=== PATIENT | female | born 1935 | race Caucasian/White ===

== ENCOUNTER 2018-04-23 10:48 | Emergency (ER) | payer OTHER ==
[~2018-04-23] VITALS: Ht 149.9 cm; Wt 43.1 kg
--- NOTE | 2018-04-23 10:48 | NUR ---
PT BIBA BLS TO ER BED 02
[2018-04-23 10:55] VITALS: BP 131/91
--- NOTE | 2018-04-23 10:58 | NUR ---
82/ F BIB EMS, C/O OF HAVING NAUSEA, DENIES FOOD, POOR APPETITE, STATES DOESNT FEEL WELL. PATIENT CANNOT RECALL HOW LONG SHE HAS HAD SYMTPOMS. LLQ PAIN, DULL INTERMITTENT 5/10, ABDOMEN IS NON TENDER. PATIENT DENIES VOMITING, DIARRHEA, CONSTIPATION, DYSURIA, OR FEVERS. PATIENT WEARS DIAPERS. REPORTS FEELING WEAK. DENIES SOB, CP, BUT HAS A COUGH, PATIENT UNAWARE OF HOW LONG. AOX4, BEDBOUND, SAFETY PRECAUTIONS IN PLACE.
[2018-04-23] MEDS ORDERED: ONDANSETRON 4 MG/2 ML VIAL IVP ONE (11:05)
[2018-04-23] MEDS ORDERED: ACT5 PO (11:11)
[2018-04-23] MEDS ORDERED: METF500T PO (11:11)
[2018-04-23] MEDS ORDERED: ESCI10TA PO (11:11)
[2018-04-23] MEDS ORDERED: SYN.05 PO (11:11)
[2018-04-23] MEDS ORDERED: RANI150C PO (11:11)
[2018-04-23] MEDS ORDERED: RIVA15TA1 PO (11:11)
[2018-04-23] MEDS ORDERED: AMIO200T5 PO (11:11)
[2018-04-23] MEDS ORDERED: HYDR-5092 PO (11:11)
[2018-04-23] MEDS ORDERED: PRED5TAB7 PO (11:11)
[2018-04-23] MEDS ORDERED: METO25TA PO (11:11)
[2018-04-23 11:32] LABS: BASOPHILS % (AUTO) 0.6 % (0.0-2.0); EOSINOPHILS % (AUTO) 0.2 % (0.0-4.0); HEMOGLOBIN 13.3 g/dL (12.0-16.0); LYMPHOCYTES # (AUTO) 0.9 K/uL (2.5-16.5); LYMPHOCYTES % (AUTO) 11.6 % (20.5-51.1); MEAN CORPUSCULAR HEMOGLOBIN 30 pg (27-31); MEAN CORPUSCULAR HGB CONC 32 g/dL (33-37); MEAN CORPUSCULAR VOLUME 93.8 fL (80-94); MONOCYTES # (AUTO) 0.3 K/uL (0.8-1.0); MONOCYTES % (AUTO) 4.6 % (1.7-9.3); NEUTROPHILS # (AUTO) 6.3 K/uL (1.8-7.7); PLATELET COUNT (AUTO) 279 K/uL (140-450); RED BLOOD CELL COUNT(AUTO) 4.48 MIL/uL (4.20-5.40); RED CELL DISTRIBUTION WIDTH 18.6 % (11.6-13.7); WHITE BLOOD COUNT (AUTO) 7.6 K/uL (4.8-10.8)
[2018-04-23 11:48] LABS: ANION GAP 13.5 (8-16); CARBON DIOXIDE 26.2 mmol/L (21-32); CHLORIDE 101 mmol/L (98-107); CREATININE 0.9 mg/dL (0.6-1.3); GLUCOSE 83 mg/dL (74-106); POTASSIUM 3.7 mmol/L (3.5-5.1); SODIUM SERUM 137 mmol/L (136-145); UREA NITROGEN, BLOOD 15 mg/dL (7-18)
[2018-04-23 11:56] LABS: ALBUMIN 2.3 g/dL (3.4-5.0); ASPARTATE AMINOTRANSFERASE 27 U/L (15-37); TOTAL BILIRUBIN 0.8 mg/dL (0.0-1.0)
[2018-04-23 12:27] LABS: PROTHROMBIN TIME 12.4 secs (10.8-13.4)
[2018-04-23 12:48] LABS: APPEARANCE,URINE HAZY (CLEAR); BILIRUBIN,URINE 2+ (NEGATIVE); BLOOD, URINE NEGATIVE (NEGATIVE); COLOR,URINE ORANGE (YELLOW); LEUKOCYTE ESTERASE ,URINE NEGATIVE (NEGATIVE); NITRITE, URINE NEGATIVE (NEGATIVE); UGLUCOSE NEGATIVE (NEGATIVE)
--- NOTE | 2018-04-23 12:58 | NUR ---
PATIENT TAKEN TO CT, VIA GURNEY ACCOMPANIED BY RAD. VILLAVICENCIO.
--- NOTE | 2018-04-23 13:10 | NUR ---
PATIENT IS ABCK FROM CT, VIA GURNEY.
--- NOTE | 2018-04-23 13:25 | NUR ---
, NOTIFIED OF [facility] IM VS IVP.
--- NOTE | 2018-04-23 13:44 | NUR ---
RESTING WITH OU CLOSED, NO S/S RESP DISTRESS OR ACCESSORY MUSCLE USE NOTED AT THIS TIME. AWAITS DISPO
[2018-04-23] MEDS ORDERED: NACL 0.9% 500 ML IV ONE (14:10)
--- NOTE | 2018-04-23 14:20 | NUR ---
INFLUENZA SWAB PERFORMED, LAB CALLED.
[2018-04-23] MEDS ORDERED: METOPROLOL 5 MG/5 ML VIAL IVP ONE (15:55)
--- NOTE | 2018-04-23 16:50 | NUR ---
CALLED [facility] REQUESTING TRANSPORT BACK TO [facility]. ETA OF 1900 GIVEN.
--- NOTE | 2018-04-23 19:13 | NUR ---
CALLED [facility] FOR UPDATED ETA WILL BE AN ADDITIONAL 60-90 MIN
--- NOTE | 2018-04-23 19:21 | NUR ---
RESTING WITH EYES CLOSED, NO S/S RESP DISTRESS OR ACCESSORY MUSCLE USE NOTED AT THIS TIME. AWAITS DISPO
--- NOTE | 2018-04-23 20:19 | NUR ---
CALLED [facility] FOR UPDATED ETA WILL BE AN ADDITIONAL 20-30 MIN
--- NOTE | 2018-04-23 21:00 | NUR ---
CALLED REPORT TO [facility] N/A
--- NOTE | 2018-04-23 21:15 | NUR ---
[facility], AT BEDSIDE FOR PATIET PICKUP.
--- NOTE | 2018-04-23 21:25 | NUR ---
PT TAKEN BY [facility] OUT OF THE ER
[2018-04-23 21:32] VITALS: BP 110/72
--- NOTE | 2018-04-23 21:33 | NUR ---
Patient discharged with v/s stable. Written and verbal after care instructions given and explained. Patient alert, oriented and verbalized understanding of instructions. Ambulance Transport with by caregiver. All questions addressed prior to discharge. ID band removed. Patient advised to follow up with PMD. Rx of MIRALAX given. Patient educated on indication of medication including possible reaction and side effects. Opportunity to ask questions provided and answered.
--- NOTE | 2018-04-23 21:40 | NUR ---
CALLED REPORT TO [facility] SPOKE TO DERRICK, REPORT GIVEN
== END 2018-04-23 21:33 | disposition home or self-care (01) ==
LOC: MED 10:48
DX: K59.00 Constipation, unspecified (principal); E86.0 Dehydration; I48.91 Unspecified atrial fibrillation; E11.9 Type 2 diabetes mellitus without complications; I10 Essential (primary) hypertension; E03.9 Hypothyroidism, unspecified; Z79.84 Long term (current) use of oral hypoglycemic drugs; Z79.01 Long term (current) use of anticoagulants; Z79.891 Long term (current) use of opiate analgesic; Z79.899 Other long term (current) drug therapy
CPT/HCPCS: 36415; 51701; 74177; 80053; 81003; 85025; 85610; 96361; 96374; 96375; 99284; J2405; J3490; J7030; Q9967

== ENCOUNTER 2018-06-04 18:30 | Inpatient (IN) | payer OTHER ==
[~2018-06-04] VITALS: Ht 154.9 cm; Wt 49.9 kg
[~2018-06-04 18:30] MED LIST: ACT5 PO; AMIO200T5 PO; ESCI10TA PO; HYDR-5092 PO; METF500T PO; METO25TA PO; PRED5TAB7 PO; RANI150C PO; RIVA15TA1 PO; SYN.05 PO
[2018-06-04 18:32] VITALS: BP 146/49
--- NOTE | 2018-06-04 18:41 | NUR ---
PT BIB BLS TO ER BED 10
--- NOTE | 2018-06-04 18:57 | NUR ---
BIBA FROM TYPING TEACHER CARE. STATES THAT THE PATIENT WAS NOT ABLE TO MAINTAIN O2 SAT AND HAD LABORED BREATHING. PATIENT A&Ox3 STATES NO PAIN.
--- NOTE | 2018-06-04 19:08 | NUR ---
ASSUMED CARE FROM MARIA VICTORIA SNOW
[2018-06-04] MEDS ORDERED: NACL 0.9% 1,000 ML IV SCH (20:04)
--- NOTE | 2018-06-04 20:11 | NUR ---
EKG PERFORMED AT BEDSIDE. PT COVERED IN GOWN AND BLANKET DURING PROCEDURE
[2018-06-04] MEDS ORDERED: PIPERACILLIN/TAZOBACTAM 3.375 GM in DEXTROSE 5% 50 ML IV ONE (20:50)
--- NOTE | 2018-06-04 20:50 | NUR ---
SUPERVISOR DRY CELL ASSEMBLY ATTEMPTING IV AT THIS TIME.
[2018-06-04] MEDS ORDERED: PIPERACILLIN/TAZOBACTAM 3.375 GM VIAL IV ONE (21:09)
[2018-06-04 21:10] LABS: BASOPHILS # (AUTO) 0.1 K/uL (0.00-0.22); BASOPHILS % (AUTO) 0.5 % (0.0-2.0); HEMATOCRIT 28.3 % (36-48); HEMOGLOBIN 8.8 g/dL (12.0-16.0); LYMPHOCYTES # (AUTO) 0.6 K/uL (2.5-16.5); LYMPHOCYTES % (AUTO) 3.1 % (20.5-51.1); MEAN CORPUSCULAR HEMOGLOBIN 30 pg (27-31); MEAN CORPUSCULAR HGB CONC 31 g/dL (33-37); MEAN CORPUSCULAR VOLUME 95.3 fL (80-94); MONOCYTES # (AUTO) 0.5 K/uL (0.8-1.0); MONOCYTES % (AUTO) 2.6 % (1.7-9.3); NEUTROPHILS # (AUTO) 18.7 K/uL (1.8-7.7); NEUTROPHILS % (AUTO) 93.8 % (42.2-75.2); PLATELET COUNT (AUTO) 459 K/uL (140-450); RED BLOOD CELL COUNT(AUTO) 2.97 MIL/uL (4.20-5.40)
[2018-06-04 21:13] LABS: ANION GAP 13.8 (8-16); CHLORIDE 105 mmol/L (98-107); CREATININE 1.4 mg/dL (0.6-1.3); GLUCOSE 137 mg/dL (74-106); POTASSIUM 4.8 mmol/L (3.5-5.1); SODIUM SERUM 138 mmol/L (136-145); UREA NITROGEN, BLOOD 40 mg/dL (7-18)
[2018-06-04 21:26] LABS: ALBUMIN 1.6 g/dL (3.4-5.0); ASPARTATE AMINOTRANSFERASE 28 U/L (15-37); TOTAL BILIRUBIN 0.4 mg/dL (0.0-1.0)
[2018-06-04] MEDS ORDERED: NACL 0.9% 500 ML IV ONE (21:30)
[2018-06-04 21:31] LABS: PROTHROMBIN TIME 15.5 secs (10.8-13.4)
--- NOTE | 2018-06-04 21:45 | NUR ---
RUPAL MCBRIDE AT [facility] FOR IV PLACEMENT
--- NOTE | 2018-06-04 21:56 | NUR ---
# 14 FR Urinary catheter inserted utilizing sterile technique. Immediate return of 50 ml YELLOW urine noted. Urine sample collected and sent to lab. Pt tolerated procedure WELL.
[2018-06-04 22:05] LABS: APPEARANCE,URINE CLEAR (CLEAR); BILIRUBIN,URINE NEGATIVE (NEGATIVE); BLOOD, URINE NEGATIVE (NEGATIVE); COLOR,URINE YELLOW (YELLOW); LEUKOCYTE ESTERASE ,URINE TRACE (NEGATIVE); NITRITE, URINE NEGATIVE (NEGATIVE); UGLUCOSE NEGATIVE (NEGATIVE)
[2018-06-04 22:09] LABS: RBC,URINE 0-5 (RARE) /HPF (0-5)
[2018-06-04 22:10] LABS: URINE AMORPHOUS URATE 1+ /HPF (None Seen); WBC,URINE 0-5 (RARE) /HPF (0-5)
[2018-06-04 22:11] LABS: HYALINE CASTS, URINE 0-10 /LPF (None Seen)
[2018-06-04] MEDS ORDERED: DIGO0.122 PO (22:11)
[2018-06-04] MEDS ORDERED: POTA10TA34 PO (22:11)
[2018-06-04] MEDS ORDERED: DRON2.5C PO (22:11)
[2018-06-04] MEDS ORDERED: APID SUBQ (22:11)
[2018-06-04] MEDS ORDERED: LACT10SO1 PO (22:11)
[2018-06-04] MEDS ORDERED: SYN.05 PO (22:11)
[2018-06-04] MEDS ORDERED: ASPIRIN 81 MG TAB.CHEW PO ONE (22:20)
[2018-06-04] MEDS: NACL 0.9% 1,000 ML IV SCH (22:39)
[2018-06-04] MEDS ORDERED: ACETAMINOPHEN 325 MG TAB PO PRN (22:40)
[2018-06-04] MEDS ORDERED: DOCUSATE SODIUM 100 MG GELCAP PO PRN (22:40)
[2018-06-04] MEDS ORDERED: HYDROcodone/APAP 5/325 MG 1 TAB TAB PO PRN (22:40)
[2018-06-04] MEDS ORDERED: ONDANSETRON 4 MG/2 ML VIAL IM/IVP PRN (22:40)
--- NOTE | 2018-06-04 23:00 | NUR ---
ADMITTED A 82 Y/O FEMALE FROM VIA [facility] WITH CHIEF COMPLAINT OF SHORTNESS OF BREATHING. RESPIRATION EVEN AND UNLABORED. PATIENT IN CARDIAC MONITORING. TRANSFERRED PATIENT FROM [facility] TO BED WITH 2 PERSON ASSIST.MRSA NASAL DONE. SKIN INTACT. IV INFILTRATED WHEN RECEIVED FROM . PERSONAL BELONGINGS AT PATIENT BEDSIDE. FALL PRECAUTION APPLIED. EXPLAINED PLAN OF CARE. CALL LIGHT WITHIN REACH. WILL CONTINUE TO MONITOR.
[2018-06-04] MEDS ORDERED: ALBUTEROL SULFATE/IPRATROPIU 3 ML SOL IH PRN (23:15)
--- NOTE | 2018-06-04 23:45 | NUR ---
PATIENT TRANSPORTED TO IMAGING DEPARTMENT FOR CT OF HEAD. PATIENT IN STABLE CONDITION.
[2018-06-04 23:52] LABS: CHOL/HDL RATIO 3.1 (1-4.5); MAGNESIUM 2.1 mg/dL (1.8-2.4); PHOSPHORUS 4.4 mg/dL (2.5-4.9)
[2018-06-04 23:53] LABS: THYROID STIMULATING HORMONE 3.52 uIU/mL (0.34-3.74)
--- NOTE | 2018-06-05 | NUR ---
PLACE PATIENT IN COMFORTABLE POSITION AND PLACE PILLOW FOR TURNING AND REPOSITIONING.
--- NOTE | 2018-06-05 01:00 | NUR ---
RESIDENT DR. RUFF MADE AWARE THAT UNABLE TO DRAW BLOOD PER REPEATER OPERATOR.
--- NOTE | 2018-06-05 02:00 | NUR ---
REPOSITION PATIENT AND ELEVATED HOB . [address] FALL PRECAUTION APPLIED. KEEP PATIENT WARM AND COMFORTABLE. WILL CONTINUE TO MONITOR.
[2018-06-05] MEDS ORDERED: HEPARIN PER PHARMACY MC PRN (02:20)
[2018-06-05] MEDS ORDERED: hePARIN / DEXT 5% PREMIX 250 ML IV SCH (02:20)
--- NOTE | 2018-06-05 03:45 | NUR ---
UNABLE TO GET IV ACCESS 2X. DR. RUFF AWARE.
--- NOTE | 2018-06-05 03:50 | NUR ---
DR. RUFF ORDERED LACTIC ACID BUT UNABLE TO DRAW BLOOD. DR. RUFF MADE AWARE.
[2018-06-05 04:00] VITALS: BP 114/83
--- NOTE | 2018-06-05 04:30 | NUR ---
UNABLE TO GET IV ACCESS. DR. RUFF AWARE.
[2018-06-05] MEDS ORDERED: INSULIN LISPRO SLIDING SCALE 100 UNITS/ML VIAL SUBQ PRN (04:40)
[2018-06-05] MEDS: PIPER/TAZO 3.375GM/D5W PREMIX 50 ML IV SCH ×3 (05:00→21:29)
--- NOTE | 2018-06-05 05:00 | NUR ---
AM CARE DONE. REPOSITIONED PATIENT USING PILLOW AND APPLIED HEEL PROTECTOR BOTH SIDE. HOB ELEVATED WITH [address] NO S/S OF DISTRESS NOTED. FALL PRECAUTION APPLIED.
--- NOTE | 2018-06-05 05:22 | NUR ---
RT attempted ABG three times and could not obtain sample additional RT tried and was unsuccessful. RN and Dr. Zelaya notified that sample was difficult to obtain. Patient is stable, alert on 3L nasal canula spo2 [address] 87[address] Not[address] and order was canceled. Rt will monitor patient.
[2018-06-05] MEDS ORDERED: NITROGLYCERIN 0.4 MG TAB SL PRN (05:30)
[2018-06-05] MEDS: LEVOTHYROXINE 0.05 MG TAB PO SCH (05:57)
[2018-06-05] MEDS: BLOOD GLUCOSE MONITORING 1 DEV DEV FS SCH ×4 (05:57→21:40)
[2018-06-05 08:00] VITALS: BP 110/68
--- NOTE | 2018-06-05 08:17 | NUR ---
PATIENT HAS BEEN SCREENED AND CATEGORIZED HIGH NUTRITION RISK. PATIENT WILL BE SEEN WITHIN 1-2 DAYS OF ADMISSION. 06/05/18-06/06/[address]
[2018-06-05 08:26] LABS: HEMATOCRIT 28.5 % (36-48); HEMOGLOBIN 8.9 g/dL (12.0-16.0); MEAN CORPUSCULAR HEMOGLOBIN 30 pg (27-31); MEAN CORPUSCULAR HGB CONC 31 g/dL (33-37); MEAN CORPUSCULAR VOLUME 94.7 fL (80-94); PLATELET COUNT (AUTO) 506 K/uL (140-450); RED BLOOD CELL COUNT(AUTO) 3.01 MIL/uL (4.20-5.40); WHITE BLOOD COUNT (AUTO) 19.3 K/uL (4.8-10.8)
[2018-06-05] MEDS: LISINOPRIL 10 MG TAB PO SCH (09:00)
[2018-06-05] MEDS ORDERED: METOPROLOL 25 MG TAB PO SCH (09:00)
[2018-06-05] MEDS: METOPROLOL 25 MG TAB PO SCH ×2 (09:00→21:33)
[2018-06-05] MEDS: metFORMIN 500 MG TAB PO SCH (09:00)
[2018-06-05] MEDS ORDERED: RIVAROXABAN 15 MG TAB PO SCH (09:00)
[2018-06-05 09:36] LABS: LYMPHOCYTES % (MANUAL) 8 % (20-46); MONOCYTES % (MANUAL) 2 % (5-12)
[2018-06-05] MEDS: ESCITALOPRAM 20 MG TAB PO SCH (09:48)
[2018-06-05] MEDS: predniSONE 5 MG TAB PO SCH (09:50)
[2018-06-05] MEDS: AMIODARONE 200 MG TAB PO SCH ×2 (09:50→21:32)
[2018-06-05] MEDS: DIGOXIN 0.125 MG TAB PO SCH (09:50)
[2018-06-05] MEDS: ASPIRIN 81 MG TAB.CHEW PO SCH (09:50)
--- NOTE | 2018-06-05 09:50 | NUR ---
RADIOLOGIST AT BEDSIDE PERFORMING US ABD. SCHEDULED MEDICATIONS DUE GIVEN. METFORMIN NOT GIVEN DUE TO DECREASED GLUCOSE THIS MORNING AND PATIENT HAS CURRENTLY POOR APPETITE AND NO IV LINE. AWAITING FOR PICC NURSE TO ARRIVE AROUND 10-11AM THIS MORNING PER PICC NURSE REPORTED VIA PHONE CALL.
--- NOTE | 2018-06-05 11:00 | NUR ---
PICC LINE NURSE ON UNIT TO INSERT PICC LINE. WILL CONTINUE TO MONITOR.
[2018-06-05 11:14] LABS: ANION GAP 16.4 (8-16); CARBON DIOXIDE 21.6 mmol/L (21-32); CHLORIDE 104 mmol/L (98-107); GLUCOSE 110 mg/dL (74-106); SODIUM SERUM 137 mmol/L (136-145)
[2018-06-05 11:15] LABS: CREATININE 1.4 mg/dL (0.6-1.3); UREA NITROGEN, BLOOD 42 mg/dL (7-18)
[2018-06-05 11:16] LABS: MAGNESIUM 2.1 mg/dL (1.8-2.4); PHOSPHORUS 4.7 mg/dL (2.5-4.9)
--- NOTE | 2018-06-05 11:50 | NUR ---
PICC LINE NURSE COMPLETED INSERTION OF MIDLINE ON RIGHT UE. PATIENT TOLERATED WELL. WILL CONTINUE TO MONITOR.
[2018-06-05 12:00] VITALS: BP 123/57
--- NOTE | 2018-06-05 12:29 | NUR ---
PATIENT LYING DOWN IN BED. NO DISTRESS NOTED. CONDITION UNCHANGED. SCHEDULED MEDICATIONS DUE GIVEN. WILL CONTINUE TO MONITOR.
--- NOTE | 2018-06-05 13:16 | NUR ---
06/05/18 RD INITIAL ASSESSMENT COMPLETED PLEASE REFER TO NUTRITION ASSESSMENT UNDER CARE ACTIVITY FOR ESTIMATED NUTRITIONAL NEEDS. 1. RECOMMEND CARDIAC, 60 GM CCHO PUREE DIET 2. RECOMMEND GLUCERNA TID 3. RD TO FOLLOW-UP 2-3 DAYS, HIGH RISK RUFUS GALLAGHER, RD
--- NOTE | 2018-06-05 13:50 | NUR ---
PATIENT LYING DOWN IN BED SLEEPING, AROUSABLE BY VOICE. HEPARIN DRIP STARTED AT THIS TIME PER PROTOCOL. WILL CONTINUE TO MONITOR.
[2018-06-05] MEDS: hePARIN / DEXT 5% PREMIX 250 ML IV SCH (13:52)
--- NOTE | 2018-06-05 14:53 | NUR ---
S.T. Bedside swallow eval completed See report for full details. Pt presents with mod-severe oropharyngeal dysphagia c/b prolonged oral prep and bolus holding, delayed pharyngeal swallow initiation and coughing after swallows of thin liquids, nectar thick liquids and honey thick liquid x1, likely due to fatigue. Pt appeared to fatigue and become increasingly SOB. It appears unlikely that pt will maintain endurance for p.o. intake to meet caloric needs. Recommend: 1) Downgrade diet texture to pureed with honey thick liquids via spoon. 2) P.O. meds as tolerated. 3) Consider dietary supplement or supplemental non-oral means of nutrition/hydration to support caloric needs. D/w pt and MARIA VICTORIA Howard results/recommendations. No further tx indicated at this time. Do not advance diet texture beyond puree. Recommend conservative advancement if any of liquid texture. Time 3061-0700
--- NOTE | 2018-06-05 15:30 | NUR ---
ASSISTED TEAM FOREMAN IN CLEANING AND REPOSITIONING PATIENT. PATIENT TOLERATED WELL. WILL CONTINUE TO MONITOR.
[2018-06-05 16:00] VITALS: BP 151/48
[2018-06-05] MEDS: FUROSEMIDE 40 MG/4 ML VIAL IVP SCH (17:18)
--- NOTE | 2018-06-05 17:22 | NUR ---
PATIENT LYING DOWN IN BED SLEEPING, AROUSABLE BY VOICE. NO DISTRESS NOTED. SCHEDULED MEDICATIONS DUE GIVEN. WILL CONTINUE TO MONITOR.
--- NOTE | 2018-06-05 19:36 | NUR ---
GAVE REPORT TO PRESSER MACHINE NURSE FOR CONTINUITY OF CARE. PATIENT IN STABLE CONDITION
--- NOTE | 2018-06-05 19:37 | NUR ---
RECD. RESTING IN BED, AWAKE, A/OX1, ABLE TO VERBALIZED BASIC NEEDS. NO RESPIRATORY DISTRESS NOTED. ON O2 AT 2 LITERS VIA N/C. ON HEPARIN DRIP AT 540 UNITS/HR, AND IV OF NS AT 10/ML PER HOUR INFUSING, CENTRAL LINE, RIGHT UPPER MIDLINE DOUBLE LUMEN. REORIENTED TO HOSPITAL SETTING. SAFETY MEASURES ENFORCED. PLAN OF CARE FOR THE SHIFT DISCUSSED. NEEDS REINFORCEMENT. DENIES PAIN 0/10.
--- NOTE | 2018-06-05 19:37 | NUR ---
RECD. RESTING IN BED, AWAKE, A/OX1, ABLE TO VERBALIZED BASIC NEEDS. ON HEPARIN DRIP AT 5450 Addendum: 06/06/18 at 0102 by Vandana Ruelas LVN ERROR: WRONG ENTRY. PLS DISREGARD THIS NOTES.
[2018-06-05 20:00] VITALS: BP 130/78
--- NOTE | 2018-06-05 20:00 | NUR ---
Patient's Plan of Care was discussed and reviewed with CARE MANAGER: STEPHANIE. WILL CONTINUE WITH CURRENT POC.
--- NOTE | 2018-06-05 20:48 | NUR ---
AB TECH CALLED - PTT - 61.8, NO CHANGED, FOLLOW HEPARIN PROTOCOL. WILL ORDER NEXT BLOOD DRAW.
[2018-06-05] MEDS: NACL 0.9% 1,000 ML IV SCH (22:39)
[2018-06-06] VITALS (17 sets, daily range): BP systolic 85–148; BP diastolic 35–78
--- NOTE | 2018-06-06 03:05 | NUR ---
BRICK LAYER CALLED - PTT, 55.5, NO CHANGED. WILL ORDER NEXT PTT.
[2018-06-06] MEDS: PIPER/TAZO 3.375GM/D5W PREMIX 50 ML IV SCH ×3 (05:50→21:39)
[2018-06-06] MEDS: BLOOD GLUCOSE MONITORING 1 DEV DEV FS SCH ×4 (06:05→21:39)
[2018-06-06] MEDS: LEVOTHYROXINE 0.05 MG TAB PO SCH (06:25)
[2018-06-06 06:54] LABS: ANION GAP 14.4 (8-16); CARBON DIOXIDE 23.5 mmol/L (21-32); CHLORIDE 106 mmol/L (98-107); CREATININE 1.3 mg/dL (0.6-1.3); GLUCOSE 95 mg/dL (74-106); POTASSIUM 3.9 mmol/L (3.5-5.1); SODIUM SERUM 140 mmol/L (136-145); UREA NITROGEN, BLOOD 44 mg/dL (7-18)
--- NOTE | 2018-06-06 07:25 | NUR ---
AWAKE, COUGHED OUT A LOG TO CREAMY SEMI THICK PHLEGM, COLLECTED SPUTUM FOR CULTURE. ENDORSED TO AM NURSE FOR CONTINUITY OF CARE.
--- NOTE | 2018-06-06 07:26 | NUR ---
RECEIVED BEDSIDE REPORT FROM ALUMINA REFINERY OPERATOR NURSE. PATIENT IS AWAKE, ALERT AND ORIENTEDX1. NO SIGNS OF DISTRESS ON 2L NC. PATIENT IS BEDBOUND. SKIN IS INTACT. L ARM HAS REDNESS AND EDEMA. ROSHAN HAS MIDLINE, CLEAN, DRY AND INTACT. INFUSING HEPARIN 540 UNITS/HR AND OTHER LINE ZOSYN AT 100. PATIENT TOLERATING WELL. TELE MONITOR IN PLACE. PATIENT INCONTINENT. BED IN LOW POSITION. CALL LIGHT WITHIN REACH. WILL CONTINUE TO MONITOR THE PATIENT.
[2018-06-06 07:31] LABS: PHOSPHORUS 5.3 mg/dL (2.5-4.9)
[2018-06-06 08:19] LABS: T4 (THYROXINE) 7.6 ug/dL (4.5-12.0)
[2018-06-06 08:19] LABS: FOLIC ACID 8.8 ng/mL (>3.0)
[2018-06-06] MEDS: FUROSEMIDE 40 MG/4 ML VIAL IVP SCH ×2 (09:00→16:42)
[2018-06-06] MEDS: LISINOPRIL 10 MG TAB PO SCH (09:00)
[2018-06-06] MEDS: predniSONE 5 MG TAB PO SCH (09:00)
[2018-06-06] MEDS ORDERED: SODIUM FERRIC GLUCONATE 125 MG in NACL 0.9% 100 ML IV SCH (09:00)
[2018-06-06] MEDS: METOPROLOL 25 MG TAB PO SCH ×2 (09:00→21:00)
[2018-06-06] MEDS: metFORMIN 500 MG TAB PO SCH (09:00)
[2018-06-06] MEDS: AMIODARONE 200 MG TAB PO SCH ×2 (09:00→21:55)
[2018-06-06] MEDS: DIGOXIN 0.125 MG TAB PO SCH (09:00)
[2018-06-06] MEDS: ASPIRIN 81 MG TAB.CHEW PO SCH (09:00)
[2018-06-06] MEDS: ESCITALOPRAM 20 MG TAB PO SCH (09:00)
[2018-06-06 09:08] LABS: HEMATOCRIT 25.3 % (36-48); HEMOGLOBIN 7.8 g/dL (12.0-16.0); MEAN CORPUSCULAR VOLUME 95.5 fL (80-94); RED BLOOD CELL COUNT(AUTO) 2.65 MIL/uL (4.20-5.40); WHITE BLOOD COUNT (AUTO) 15.7 K/uL (4.8-10.8)
[2018-06-06 09:09] LABS: MEAN CORPUSCULAR HEMOGLOBIN 30 pg (27-31); MEAN CORPUSCULAR HGB CONC 31 g/dL (33-37); PLATELET COUNT (AUTO) 451 K/uL (140-450); RED CELL DISTRIBUTION WIDTH 18.8 % (11.6-13.7)
[2018-06-06 09:18] LABS: LYMPHOCYTES % (MANUAL) 10 % (20-46); MONOCYTES % (MANUAL) 4 % (5-12)
--- NOTE | 2018-06-06 09:27 | NUR ---
DR KOHLER ASSESSED THE PATIENT AND SAW THE PATIENT WAS HAVING AGONAL BREATHING AND UNRESPONSIVE AT THIS TIME. OXYGEN SAT IN THE 80'S CALLED RT FOR STAT. DR KOHLER SAID WHILE WAITING FOR RT PLACED PATIENT ON MASK 10L/HR. OXYGEN SAT STILL IN THE 80'S. RAPID RESPONSE WAS CALLED. PATIENT MAY NEED TO BE INTUBED. TOLD DR KOHLER PATIENT WAS RESPONSIVE IN THE MORNING. SHE SAID YES TO EATING HER BREAKFAST. AFTER THAT SHE WAS COUGHING. I CALLED RT TO SUCTION PATIENT D/T THICK SECRETIONS. RT SAID AFTER HE IS DONE W THE OTHER PATIENT HE WILL SEE HER. PATIENT MAY HAVE ASPIRATED AFTER BREAKFAST
--- NOTE | 2018-06-06 09:37 | NUR ---
RAPID RESPONSE DONE. PATIENT WAS INTUBATED BY DR HOPSON.
--- NOTE | 2018-06-06 09:37 | NUR ---
RAPID RESPONSE CALLED Rachel BLACKBURN RCP AND Carmen LAURA RCP ATTENDING
--- NOTE | 2018-06-06 10:00 | NUR ---
GAVE BEDSIDE REPORT TO ICU NURSE. PATIENT ENDORSED IN STABLE CONDITION. DR KOHLER TALKED TO PATIENTS FAMILY ABOUT CONDITION AND TRANSFER TO ICU.
--- NOTE | 2018-06-06 10:15 | NUR ---
PT TRANSFERRED FROM [facility]. PT IS S/P INTUBATION. UNABLE TO MAKE NEEDS KNOWN AT THIS TIME. FLACC 0. AFEBRILE. SR ON MONITOR. MIDLINE TO ROSHAN ASYMPTOMATIC, PATENT AND INTACT, PT RECEIVING HEPARIN DRIP AT 540 U/HR, IVF NS AT 10 ML/HR. REDNESS AND EDEMA TO LEFT UPPER ARM NOTED. ABD SOFT, NONDISTENDED AND NONTENDER W/ ACTIVE BOWEL SOUNDS. SKIN IS INTACT, DRY AND WARM TO TOUCH. PT IS INCONTINENT. HOB 30 DEGREES, BED IN LOWEST POSITION, CALL LIGHT WITHIN REACH. WILL CONTINUE TO MONITOR.
--- NOTE | 2018-06-06 10:45 | NUR ---
CALLED DR BRADY HANCOCK [phone] OUT OF AREA RELAYED VENTILATOR SETTINGS NOTED TO DR DAJUAN MILES NEGATIVE STRIPPER REQUEST ABG TO VALIDATE VENTILATOR SETTINGS AND SPUTUM CULTURE
[2018-06-06] MEDS: MIDAZOLAM 2 MG/2 ML VIAL IV PRN ×2 (11:03→21:56)
[2018-06-06 11:20] LABS: HEMATOCRIT 24.5 % (36-48); HEMOGLOBIN 7.8 g/dL (12.0-16.0); MEAN CORPUSCULAR HEMOGLOBIN 30 pg (27-31); MEAN CORPUSCULAR HGB CONC 32 g/dL (33-37); PLATELET COUNT (AUTO) 446 K/uL (140-450); RED BLOOD CELL COUNT(AUTO) 2.58 MIL/uL (4.20-5.40); RED CELL DISTRIBUTION WIDTH 18.4 % (11.6-13.7); WHITE BLOOD COUNT (AUTO) 14.6 K/uL (4.8-10.8)
[2018-06-06 11:35] LABS: MONOCYTES % (MANUAL) 3 % (5-12)
[2018-06-06 11:37] LABS: LYMPHOCYTES % (MANUAL) 8 % (20-46)
--- NOTE | 2018-06-06 11:40 | NUR ---
TRANSFERRED PATIENT TO RADIOLOGY TO CT SCAN OF HEAD REMOVED FROM VENTILATOR PLACED ON SUPPLEMENTAL OXYGEN AT 15 LPM VIA E-TANK TO INLINE SUCTION CATHETER/TRACH TOLERATED TRANSFER WELL WITHOUT INCIDENT SATURATION 99% HR [address] SCAN PLACED ON 15 LPM VIA OXYGEN FLOWMETER
--- NOTE | 2018-06-06 11:41 | NUR ---
DR HANCOCK SAID IT IS OK TO NOT GIVE ALL 0900 MEDS. PATIENT WAS ON RAPID RESPONSE AT THAT TIME IT WAS SCHEDULED AND PATIENT WAS INTUBATED. MEDS ARE OK TO PUT NON ADMIT.
[2018-06-06 11:42] LABS: ANION GAP 17.1 (8-16); CARBON DIOXIDE 20.2 mmol/L (21-32); CHLORIDE 106 mmol/L (98-107); CREATININE 1.5 mg/dL (0.6-1.3); GLUCOSE 127 mg/dL (74-106); POTASSIUM 4.3 mmol/L (3.5-5.1); SODIUM SERUM 139 mmol/L (136-145); UREA NITROGEN, BLOOD 46 mg/dL (7-18)
--- NOTE | 2018-06-06 11:54 | NUR ---
TRANSFERRED BACK TO ICU-1 PLACED BACK ON VENTILATOR WITH SAME SETTINGS SATURATION 100% HR 78
--- NOTE | 2018-06-06 11:55 | NUR ---
RETURNED FROM RADIOLOGY. CT OF HEAD COMPLETED. PT TOLERATED WELL. VSS. NO S/SX OF DISTRESS NOTED AT THIS TIME.
--- NOTE | 2018-06-06 11:59 | NUR ---
RESTING WELL GOOD CHEST RISE ENDOTRACHEAL SUCTION FOR LARGE THIN PALE YELLOW SECRETIONS AIRWAY PATENT
[2018-06-06] MEDS ORDERED: CALCIUM ACETATE 667 MG TAB PO SCH (12:01)
--- NOTE | 2018-06-06 13:10 | NUR ---
CEMENTER CALLED FOR CRITICAL LAB MRSA POSITIVE. DR BREWER INFORMED. WILL FOLLOW UP WITH ORDERS.
[2018-06-06] MEDS: MORPHINE SULFATE 2 MG/ML SYR IVP PRN (13:31)
--- NOTE | 2018-06-06 13:31 | NUR ---
PT AGITATED, MOVING HANDS AND TOUCHING ETT. MORPHINE ADMINISTERED ORDERED FOR AGITATION. VITAL SIGNS STABLE AT THIS TIME.
--- NOTE | 2018-06-06 13:42 | NUR ---
CALLED DR BRADY HANCOCK [phone] REVIEWED ABG SAMPLE REPORT NO NEW ORDERS TO REVIEW CURRENT HHN THERAPY ORDERS AND OXYGEN TITRATION ORDERS TO MAKE APPROPRIATE CHANGES
[2018-06-06] MEDS: MUPIROCIN CA NASAL 2% 1GM TUBE NS SCH (15:01)
[2018-06-06] MEDS: CHLORHEXADINE GLUC 2% CLOTH TP SCH (15:01)
--- NOTE | 2018-06-06 16:00 | NUR ---
VAP ORAL CARE GIVEN. REPOSITIONED FOR COMFORT. PT TOLERATED WELL. NO DISTRESS NOTED. VSS.
--- NOTE | 2018-06-06 17:28 | NUR ---
NO APPARENT PULMONARY DISTRESS NOTED GOOD CHEST RISE BREATH SOUNDS CLEAR APEX TO MID WITH RALES AT BILATERAL BASES GOOD CHEST RISE AND AERATION THROUGHOUT LUNG PRATT AIRWAY PATENT NO SUCTIONING AT THIS TIME ELEMENTARY SCHOOL COUNSELOR TO MONITOR Addendum: 06/06/18 at 1739 by Ancelmo Portillo RT SATURATION 97% ON FIO2 OF 45% TITRATED FIO2 SANDRA/MARIA VICTORIA NOTIFIED
--- NOTE | 2018-06-06 18:32 | NUR ---
DR. RUFF IN THE UNIT. UPDATED ON PT'S CONDITION. WILL FOLLOW UP ON ORDERS.
--- NOTE | 2018-06-06 19:28 | NUR ---
RECEIVED BEDSIDE REPORT FROM MORNING SHIFT RN, RT MOMO AT BEDSIDE TO SEE PT. PT IS NONVERBAL, AFEBRILE, ETT TO VENT, XY=166/65. VSS. LUNG SOUNDS CLEAR ON UPPER/LOWER BILATERAL LOBES. FIO2=40%, NL=457, RR=16, PEEP=5. ON METEOROLOGICAL ENGINEER, AFIB. OGT TO FEEDING GLUCERNA 1.2 AT 20CC/HR. BOWEL SOUNDS ACTIVE IN ALL QUADRANTS.INCONTINENT, NO BM OR URINE AT THIS TIME. NO AQUINO IN PLACE, ON FRESH BAD UNDERNEATH PT. ROSHAN MIDLINE IN PLACE, INFUSING HEPARIN AT 540UNITS/HR AND NS AT 60CC/HR. SKIN IS NON INTACT, NO OPEN WOUND. LEFT FOREARM SIGNS OF INFILTRATION, WEEPING SEROUS/BROWN LIQUID, NO SIGNS OF BLEEDING. ECCHYMOSIS NO BILATEARL FOREARMS. 2+ PITTING EDEMA ON BILATERAL LEGS. HEEL PROTECTORS ON BILATERAL LEGS. ON CONTACT ISOLATION, HOB ELEVATED ABOVE 30 DEG, VAP ORAL CARE PROVIDED. BED IN LOWEST POSITION.
--- NOTE | 2018-06-06 19:30 | NUR ---
REPORT GIVEN TO MATERIAL CONTROL ASSOCIATE RN FOR CONTINUITY OF CARE. NO ACUTE DISTRESS NOTED AT THIS TIME.
[2018-06-06] MEDS: ALBUTEROL SULFATE/IPRATROPIU 3 ML SOL IH SCH (19:36)
[2018-06-06] MEDS ORDERED: NACL 0.9% 250 ML IV ONE (22:10)
--- NOTE | 2018-06-06 22:23 | NUR ---
ARIS AT BEDSIDE TO COLLECT PTT.
--- NOTE | 2018-06-06 22:39 | NUR ---
DR. RUFF IN TO SEE PATIENT, UPDATED ON PT CONDITION, OG=353/54, BOLUS INFUSING. NURSE UNABLE TO DRAW BLOOD VIA PICCLINETERESA FROM LAB ATTEMPTING TO COLLECT PTT.
--- NOTE | 2018-06-06 23:07 | NUR ---
CHARGE NURSE LASHON AT BEDSIDE, TO DRAW BLOOD/PTT.
[2018-06-06] MEDS: NACL 0.9% 1,000 ML IV SCH (23:08)
--- NOTE | 2018-06-06 23:33 | NUR ---
CALLED DR. RUFF, UPDATED THAT LAB AND CHARGE NURSE LASHON WERE UNABLE TO DRAW BLOOD (PTT) IN ORDER TO TITRATED HEPARIN. STATED TO FOLLOW-UP WITH PHARMACY TO DETERMINE NEXT STEPS.
--- NOTE | 2018-06-06 23:36 | NUR ---
CALLED [facility]IP[facility] OPERATOR [facility] NUMBER, UPDATED ON INABILITY TO DRAW BLOOD/PTT NECESSARY TO TITRATE HEPARIN. STATED WILL NEED TO STOP HEPARIN AT THIS TIME AND SWITH TO LOVENOX SUBQ.
--- NOTE | 2018-06-06 23:41 | NUR ---
CALLED DR. RUFF AND PROVIDED HER WITH PHONE NUMER TO CONTACT [facility] UP REGARDING LOVENOX RECOMMENDATION AND STOPPING OF HEPARIN.
[2018-06-07] VITALS (22 sets, daily range): BP systolic 100–146; BP diastolic 47–79
[2018-06-07] MEDS ORDERED: ENOXAPARIN 40 MG/0.4 ML SYR SUBQ SCH ×2 (00:16)
--- NOTE | 2018-06-07 00:17 | NUR ---
RECEIVED CALL FROM [facility] IN PHARMACY, HEPARIN STOPPED AT THIS TIME. WILL PUT IN NEW ORDER OF LOVENOX TO BE GIVEN. WILL CARRY OUT.
[2018-06-07] MEDS: MORPHINE SULFATE 2 MG/ML SYR IVP PRN ×2 (00:39→20:11)
--- NOTE | 2018-06-07 03:15 | NUR ---
DR RUFF IN TO SEE PATIENT, UPDATED ON CONDITION. NS INFUSING AT 60CC/HR TO ROSHAN MIDLINE. PILLOW SUPPORT PROVIDED AND REPOSITIONED.
[2018-06-07] MEDS: PIPER/TAZO 3.375GM/D5W PREMIX 50 ML IV SCH ×3 (04:57→20:10)
[2018-06-07] MEDS: MIDAZOLAM 2 MG/2 ML VIAL IV PRN (04:58)
--- NOTE | 2018-06-07 05:31 | NUR ---
SMALL BM, BROWN IN COLOR. PT APPEARS TO BE WITHOUT DISTRESS. VSS, AQUINO CATH, VAP ORAL CARE, AND AM CARES PROVIDED.
--- NOTE | 2018-06-07 05:59 | NUR ---
DR. HATHAWAY T BEDSIDE TO SEE PATIENT, UPDATED ON CONDITION (STOPPED HEPARIN DRIP, NEW LOVENOX ORDER, BOLUS NS GIVEN FOR LOW BP DURING SHIFT, INABILITY TO DRAW BLOOD/PTT).
[2018-06-07] MEDS: LEVOTHYROXINE 0.05 MG TAB PO SCH (06:34)
[2018-06-07] MEDS: BLOOD GLUCOSE MONITORING 1 DEV DEV FS SCH ×4 (06:45→20:12)
--- NOTE | 2018-06-07 07:19 | NUR ---
RECEIVED BEDSIDE REPORT FROM SHADOWGRAPH OPERATOR RN, TRISTIN, FOR CONTINUITY OF CARE. PATIENT SLIGHTLY SEDATED, OPENS EYES TO LIGHT PAIN. SKIN IS WARM AND DRY, INTACT. SHE HAS PICC LINE TO ROSHAN, ASYMPTOMATIC, PATENT, GOOD BLOOD RETURN. PATIENT HAS ETT TO VENT, SETTINGS AC MODE, RATE 16, FIO2 40, TV 400, PEEP 5. SR ON MONITOR, FLACC 0. SHE HAS OGT IN PLACE TO FEEDING, GLUCERNA 1.2 AT 50 ML/HR WITH 50 ML H20 FLUSH Q8HR. PATIENT HAS AQUINO IN PLACE TO CLEAR YELLOW URINE. HOB IS 30 DEGREES, SAFETY PRECAUTIONS AND ALARMS ASSESSED AND ENFORCED. NO SIGNS OF DISTRESS NOTED. WILL CONTINUE TO MONITOR
[2018-06-07] MEDS: ALBUTEROL SULFATE/IPRATROPIU 3 ML SOL IH SCH ×3 (07:33→19:11)
--- NOTE | 2018-06-07 07:33 | NUR ---
RECEIVED ON A Digital OceanSCAPE R860 VENTILATOR PLUGGED INTO RED OUTLET TOLERATING WELL WITHOUT ADVERSE REACTIONS NOTED TO AN ENDOTRACHEAL TUBE #7.0 SECURED WITH AN ANCHOR FAST AT 22cm TEETH/GUM LINE CUFF PRESSURE CHECKED NOTED AMBU BAG NOTED AT HOB LOC QUIET EASILY AWAKENS RESPONSIVE TO VERBAL COMMANDS BREATH SOUNDS CLEAR LEFT SIDE TO RHONCHI AT RIGHT SIDE ENDOTRACHEAL SUCTION FOR MODERATE THICK YELLOW SECRETIONS AIRWAY PATENT
--- NOTE | 2018-06-07 07:35 | NUR ---
PROVIDED BEDSIDE REPORT TO MORNING SHIFT RN, COREY, FOR CONTINUITY OF CARE.
--- NOTE | 2018-06-07 07:50 | NUR ---
DR. DEVINE AND RESIDENT PHYSICIAN AT BEDSIDE, UPDATED ON PATIENT CONDITION. SPOKE WITH DR. HATHAWAY REGARDING GOOD BLOOD RETURN ON PATIENT'S PICC LINE. WILL FOLLOW UP WITH ANY ORDERS.
[2018-06-07] MEDS: FAMOTIDINE 20 MG TAB PO SCH (08:16)
[2018-06-07] MEDS: FUROSEMIDE 40 MG/4 ML VIAL IVP SCH ×2 (08:16→16:54)
[2018-06-07] MEDS: METOPROLOL 25 MG TAB PO SCH ×2 (08:17→20:11)
[2018-06-07] MEDS: LISINOPRIL 10 MG TAB PO SCH (08:17)
[2018-06-07] MEDS: predniSONE 5 MG TAB PO SCH (08:17)
[2018-06-07] MEDS: ASPIRIN 81 MG TAB.CHEW PO SCH (08:17)
[2018-06-07] MEDS: ESCITALOPRAM 20 MG TAB PO SCH (08:18)
[2018-06-07] MEDS: DIGOXIN 0.125 MG TAB PO SCH (08:18)
[2018-06-07] MEDS: AMIODARONE 200 MG TAB PO SCH ×2 (08:18→20:10)
[2018-06-07] MEDS: CALCIUM ACETATE 667 MG TAB PO SCH (08:19)
--- NOTE | 2018-06-07 08:51 | NUR ---
PATIENT REPOSITIONED AND ORAL CARE PROVIDED, PATIENT TOLERATED WELL. ADMINISTERED SCHEDULED MEDS ORDERED, TOLERATED WELL. NO SIGNS OF DISTRESS AT THIS TIME, WILL CONTINUE TO MONITOR
--- NOTE | 2018-06-07 09:19 | NUR ---
AUTOMOTIVE ENGINEERING TEACHER IS HERE TO FOR AM LABS.
[2018-06-07] MEDS: SODIUM FERRIC GLUCONATE 125 MG in NACL 0.9% 100 ML IV SCH (09:25)
--- NOTE | 2018-06-07 09:57 | NUR ---
DR. MARSHALL IS HERE TO SEE PATIENT, UPDATED ON PATIENT'S CONDITION. WILL FOLLOW UP ON ANY ORDERS.
--- NOTE | 2018-06-07 09:58 | NUR ---
RESTING COMFORTABLY NO PULMONARY DISTRESS NOTED GOOD CHEST RISE AND AERATION THROUGHOUT LUNG PRATT AIRWAY PATENT SATURATION 97% ON FIO2 OF 40% TITRATED FIO2 TO 35% EIRENE/RN NOTIFIED
[2018-06-07 10:12] LABS: HEMATOCRIT 23.4 % (36-48); HEMOGLOBIN 7.2 g/dL (12.0-16.0); MEAN CORPUSCULAR HEMOGLOBIN 30 pg (27-31); MEAN CORPUSCULAR HGB CONC 31 g/dL (33-37); MEAN CORPUSCULAR VOLUME 96.5 fL (80-94); PLATELET COUNT (AUTO) 386 K/uL (140-450); RED BLOOD CELL COUNT(AUTO) 2.43 MIL/uL (4.20-5.40); WHITE BLOOD COUNT (AUTO) 13.6 K/uL (4.8-10.8)
[2018-06-07 10:17] LABS: ANION GAP 14.8 (8-16); CARBON DIOXIDE 23.4 mmol/L (21-32); CHLORIDE 107 mmol/L (98-107); CREATININE 1.5 mg/dL (0.6-1.3); GLUCOSE 120 mg/dL (74-106); POTASSIUM 3.2 mmol/L (3.5-5.1); SODIUM SERUM 142 mmol/L (136-145); UREA NITROGEN, BLOOD 43 mg/dL (7-18)
[2018-06-07 10:18] LABS: MAGNESIUM 2.1 mg/dL (1.8-2.4); PHOSPHORUS 4.7 mg/dL (2.5-4.9)
[2018-06-07 10:35] LABS: LYMPHOCYTES % (MANUAL) 7 % (20-46); MONOCYTES % (MANUAL) 7 % (5-12)
--- NOTE | 2018-06-07 10:42 | NUR ---
SPOKE WITH DR. KOHLER AND PHARMACIST REGARDING PLAN FOR HEPARIN DRIP DUE TO PATIENT BEING STARTED ON LOVENOX THIS MORNING AT 0100. PLAN IS TO WAIT 12HR AFTER ADMINISTRATION OF DOSE, AND OBTAIN PTT TO START PATIENT BACK ON HEPARIN DRIP AFTER [address] KOHLER AND PHARMACIST AWARE.
[2018-06-07] MEDS ORDERED: POTASSIUM CHLORIDE 20% 40 MEQ/15 ML UDC GT SCH (11:30)
--- NOTE | 2018-06-07 12:02 | NUR ---
RESTING COMFORTABLY NO EVIDENCE OF RESPIRATORY DISTRESS NOTED GOOD CHEST RISE ENDOTRACHEAL SUCTION FOR LARGE THIN MARVIN SECRETIONS (SPUTUM RECOLLECTION) AIRWAY PATENT SHAWNA/RN NOTIFIED
[2018-06-07] MEDS: hePARIN / DEXT 5% PREMIX 250 ML IV SCH (13:18)
--- NOTE | 2018-06-07 13:28 | NUR ---
PATIENT STARTED BACK ON HEPARIN DRIP, PTT WAS 43, ADMINISTERED HEPARIN PER PROTOCOL. PATIENT IS TOLERATING WELL
--- NOTE | 2018-06-07 13:29 | NUR ---
PATIENT'S SON IS AT BEDSIDE, UPDATED ON PATIENT'S CONDITION. WILL CONTINUE TO MONITOR
--- NOTE | 2018-06-07 13:57 | NUR ---
RESTING WELL NO SOB NOTED TOLERATING VENTILATOR SUPPORT WELL WITH INCIDENT GOOD CHEST RISE ENDOTRACHEAL SUCTION FOR MODERATE THIN YELLOW SECRETINS AIRWAY PATENT
[2018-06-07] MEDS: CHLORHEXADINE GLUC 2% CLOTH TP SCH (14:56)
[2018-06-07] MEDS: MUPIROCIN CA NASAL 2% 1GM TUBE NS SCH (14:56)
--- NOTE | 2018-06-07 15:22 | NUR ---
PATIENT REPOSITIONED CLEANED WITH CHLORHEXADINE WIPES, AND ORAL CARE PROVIDED, TOLERATED WELL. NO SIGNS OF DISTRESS NOTED. WILL CONTINUE TO MONITOR
--- NOTE | 2018-06-07 17:43 | NUR ---
NO APPARENT SOB NOTED GOOD CHEST RISE AND AERATION APEX TO MID ENDOTRACHEAL SUCTION FOR MODERATE THICK YELLOW SECRETIONS AIRWAY PATENT
--- NOTE | 2018-06-07 17:47 | NUR ---
PATIENT REPOSITIONED FOR COMFORT, NO SIGNS OF DISTRESS NOTED. WILL CONTINUE TO MONITOR
--- NOTE | 2018-06-07 19:09 | NUR ---
ENDORSED CONTINUITY OF CARE TO COLLECTIONS ASSISTANT RNTERRANCE. NO SIGNS OF DISTRESS NOTED.
--- NOTE | 2018-06-07 19:30 | NUR ---
RECEIVED REPORT FROM DAY NURSE NO ACUTE DISTRESS NOTED
--- NOTE | 2018-06-07 20:00 | NUR ---
PT AWAKE, RESPONDING TO NAME, UNABLE TO FOLLOW COMMANDS. 7.0 ETT TO VENT 23 CM @ LIP. LUNGS CLEAR/DIMINISHED. GREEN SMALL SPUTUM NOTED. VAP ORAL CARE DONE. +2 PALPABLE PULSES, TRACE EDEMA NOTED. ABD SOFT NON DISTENDED. OGT IN PLACE, MIN RESIDUALS NOTED, GLUCERNA FEEDINGS RUNNING. AQUINO CATH IN PLACE, CLEAR YELLOW URINE NOTED. SKIN INTACT, BLANCHABLE REDNESS TO BUTTOCKS AREA. MIDLINE TO R UPPER ARM NOTED. HEPARIN DRIP INFUSING PER PROTOCOL WILL CONTINUE TO OBSERVE.
[2018-06-07 21:11] LABS: PROTHROMBIN TIME 12.4 secs (10.8-13.4)
--- NOTE | 2018-06-07 22:15 | NUR ---
PT RESTING IN BED, FLACC 0, VSS. PT REPOSITIONED. WILL CONTINUE TO OBSERVE.
[2018-06-07] MEDS: NACL 0.9% 1,000 ML IV SCH (22:39)
[2018-06-08] VITALS (24 sets, daily range): BP systolic 97–144; BP diastolic 39–98
--- NOTE | 2018-06-08 00:25 | NUR ---
VAP ORAL CARE GIVEN. PT TURNED AND REPOSITIONED.
--- NOTE | 2018-06-08 04:00 | NUR ---
AM CARE PROVIDED. PT TURNED AND REPOSITIONED
[2018-06-08] MEDS: MORPHINE SULFATE 2 MG/ML SYR IVP PRN ×3 (04:30→23:14)
[2018-06-08] MEDS: PIPER/TAZO 3.375GM/D5W PREMIX 50 ML IV SCH ×2 (04:50→12:30)
[2018-06-08] MEDS: MIDAZOLAM 2 MG/2 ML VIAL IV PRN ×3 (05:04→20:48)
[2018-06-08 05:46] LABS: HEMATOCRIT 22.1 % (36-48); MEAN CORPUSCULAR HEMOGLOBIN 29 pg (27-31); RED BLOOD CELL COUNT(AUTO) 2.27 MIL/uL (4.20-5.40)
[2018-06-08 05:49] LABS: MEAN CORPUSCULAR HGB CONC 30 g/dL (33-37); MEAN CORPUSCULAR VOLUME 97.5 fL (80-94); PLATELET COUNT (AUTO) 387 K/uL (140-450); RED CELL DISTRIBUTION WIDTH 18.7 % (11.6-13.7); WHITE BLOOD COUNT (AUTO) 17.1 K/uL (4.8-10.8)
[2018-06-08 05:57] LABS: ANION GAP 13.9 (8-16); CARBON DIOXIDE 24.4 mmol/L (21-32); CHLORIDE 109 mmol/L (98-107); CREATININE 1.7 mg/dL (0.6-1.3); GLUCOSE 110 mg/dL (74-106); POTASSIUM 4.3 mmol/L (3.5-5.1); SODIUM SERUM 143 mmol/L (136-145); UREA NITROGEN, BLOOD 46 mg/dL (7-18)
[2018-06-08 06:00] LABS: MAGNESIUM 2.1 mg/dL (1.8-2.4); PHOSPHORUS 4.2 mg/dL (2.5-4.9)
[2018-06-08 06:01] LABS: HEMOGLOBIN 6.6 g/dL (12.0-16.0)
[2018-06-08 06:15] LABS: CORRECTED WHITE BLOOD COUNT 15.5 K/uL (4.5-11.0); LYMPHOCYTES % (MANUAL) 8 % (20-46); MONOCYTES % (MANUAL) 8 % (5-12)
--- NOTE | 2018-06-08 06:30 | NUR ---
DR KOHLER @ BEDSIDE.
[2018-06-08] MEDS: LEVOTHYROXINE 0.05 MG TAB PO SCH (06:40)
[2018-06-08] MEDS: BLOOD GLUCOSE MONITORING 1 DEV DEV FS SCH ×4 (06:50→20:17)
[2018-06-08] MEDS: ALBUTEROL SULFATE/IPRATROPIU 3 ML SOL IH SCH ×3 (07:00→19:08)
--- NOTE | 2018-06-08 07:00 | NUR ---
RECIVED PT ON VENT WITH SETINGS CHARTED BREATH SOUNDS PRESENT BILAT COARSE SXN PT WITH MIN AMT OFF WHITE SECS TRACHJ SITE SECURE AMBUBAG BEDSIDE VENT PLUGGED INTO RED OUTLET WILL CONTINUE TO MONITOR Addendum: 06/08/18 at 1747 by Jovan Ayala RT AMEND PT WITH ETT KAROLINA OLSEN ETT SECURE I
--- NOTE | 2018-06-08 07:30 | NUR ---
REPORT GIVEN TO DAY SHIFT FOR COTINUITY OF CARE
--- NOTE | 2018-06-08 07:30 | NUR ---
RECEIVED BEDSIDE REPORT FROM ACCOUNTANCY PROFESSOR RN. PATIENT IS LETHARGIC, SLIGHTLY SEDATED, OPENS EYES TO NAME. FLACC 0. AFEBRILE. ATRIAL FIB ON MONITOR. PT IS ETT TO VENT W/ SETTINGS AC 16, FIO2 35%, TV 400, PEEP 5. LUNGS SOUND CLEAR BILATERALLY. OGT IN PLACE, PLACEMENT CONFIRMED, NO RESIDUALS NOTED. PT IS RECEIVING TF GLUCERNA 1.2 AT 50 ML/HR WITH 50 ML H20 FLUSH Q8HR. ABD SOFT, NONDISTENDED W/ ACTIVE BOWEL SOUNDS. MIDLINE TO ROSHAN, ASYMPTOMATIC, PATENT, INTACT WITH GOOD BLOOD RETURN. ON HEPARIN DRIP AT 400 U/HR AND IVF NS AT 60 ML/HR. REDNESS AND SWELLING TO PAXTON NOTED. AQUINO CATH IN PLACE DRAINING CLEAR YELLOW URINE. SKIN IS DRY AND WARM TO TOUCH. BL HEEL PROTECTORS IN PLACE. HOB AT 30 DEGREES, BED IN LOWEST POSITION AND CALL LIGHT WITHIN REACH. NO SIGNS OF DISTRESS NOTED. WILL CONTINUE TO MONITOR. Addendum: 06/08/18 at 1220 by Tyler Maynard RN IV FLUID NORMAL SALINE AT 10 ML/HR
--- NOTE | 2018-06-08 07:40 | NUR ---
CONSENT FOR BLOOD TRANSFUSION OBTAINED FROM SON, SAWYER CURZ. WITNESSED BY CHARGE NURSE.
[2018-06-08] MEDS: ESCITALOPRAM 20 MG TAB PO SCH (08:16)
[2018-06-08] MEDS: FUROSEMIDE 40 MG/4 ML VIAL IVP SCH ×2 (08:16→17:00)
[2018-06-08] MEDS: AMIODARONE 200 MG TAB PO SCH ×2 (08:17→20:07)
[2018-06-08] MEDS: CALCIUM ACETATE 667 MG TAB PO SCH (08:17)
[2018-06-08] MEDS: predniSONE 5 MG TAB PO SCH (08:17)
[2018-06-08] MEDS: FAMOTIDINE 20 MG TAB PO SCH (08:17)
[2018-06-08] MEDS: DIGOXIN 0.125 MG TAB PO SCH (08:18)
[2018-06-08] MEDS: LISINOPRIL 10 MG TAB PO SCH (08:18)
[2018-06-08] MEDS: ASPIRIN 81 MG TAB.CHEW PO SCH (08:18)
[2018-06-08] MEDS: METOPROLOL 25 MG TAB PO SCH ×2 (08:19→20:07)
--- NOTE | 2018-06-08 08:30 | NUR ---
SCREEN FOR LOW SHANNA SCORE AT RISK, NO PRESSURE INJURY, ALL PREVENTION INTERVENTIONS IN PLACE. -TURN AND REPOSITION PATIENT Q 2H OFFLOAD LEFT AND RIGHT HIPS -ASSESS AND MONITOR SKIN CONDITION DURING POSITION CHANGE, PLEASE PAY ATTENTION TO FEET AND HEELS -OFFLOAD BILATERAL HEELS BY PLACING PILLOWS UNDER CALVES AT ALL TIMES, UNLESS OTHERWISE CONTRAINDICATED -PRESSURE REDISTRIBUTION SURFACE THERAPY -KEEP SKIN CLEAN AND DRY AT ALL TIMES.
--- NOTE | 2018-06-08 08:30 | NUR ---
DR. DEVINE AND RESIDENT GROUP IN TO SEE PT. WILL FOLLOW UP ON ORDERS.
[2018-06-08] MEDS: SODIUM FERRIC GLUCONATE 125 MG in NACL 0.9% 100 ML IV SCH (09:00)
--- NOTE | 2018-06-08 09:00 | NUR ---
MEDICATIONS ADMINISTERED ORDERED. PT TOLERATED WELL.
--- NOTE | 2018-06-08 09:19 | NUR ---
VENT CHECK COMPLETED. PT IS NOT IN ANY DISTRESS AT THIS TIME. ETT REMAINS SECURE WITH A PATENT AIRWAY. VENT ALARMS ON AND FUNCTIONING. WILL CONTINUE TO MONITOR.
--- NOTE | 2018-06-08 12:05 | NUR ---
PT'S HR BETWEEN 40-50, DR. HANCOCK AND DR. MILES MADE AWARE, NO NEW ORDER AT THIS TIME.
--- NOTE | 2018-06-08 12:10 | NUR ---
BLOOD TRANSFUSION STARTED. HR52, BP100/54, RR 17, O2 96% AT THIS TIME. WILL MONITOR FOR ANY ADVERSE REACTIONS.
--- NOTE | 2018-06-08 13:25 | NUR ---
BLOOD TRANSFUSION COMPLETED. PT IS AFEBRILE, VSS. NO SIGNS OF DISTRESS OR ADVERSE REACTION NOTED. Addendum: 06/08/18 at 1619 by Tyler Maynard RN WRONG TIME. COMPLETED AT 1525.
--- NOTE | 2018-06-08 14:58 | NUR ---
06/08/18 RD FOLLOW UP COMPLETED PLEASE REFER TO NUTRITION ASSESSMENT UNDER CARE ACTIVITY FOR ESTIMATED NUTRITIONAL NEEDS. 1. CONTINUE GLUCERNA 1.2 @ 50 ML/HR TOLERATED -THIS WILL PROVIDE 1200 ML, 1440 KCAL, 72 GM PROTEIN, WHICH MEETS 100% OF ESTIMATED KCAL AND 100% OF ESTIMATED PROTEIN NEEDS. 2. RECOMMEND 160 CC WATER FLUSHES Q8H 3. RD TO FOLLOW-UP 2-3 DAYS, HIGH RISK RUFUS GALLAGHER RD
[2018-06-08] MEDS: CHLORHEXADINE GLUC 2% CLOTH TP SCH (15:22)
[2018-06-08] MEDS: MUPIROCIN CA NASAL 2% 1GM TUBE NS SCH (15:22)
--- NOTE | 2018-06-08 15:55 | NUR ---
PT HAD A MODERATE AMOUNT OF BROWN PASTY BOWEL MOVEMENT. CLEANED AND REPOSITIONED. VAP ORAL CARE GIVEN.
--- NOTE | 2018-06-08 16:45 | NUR ---
PT'S SON AT BEDSIDE, UPDATED ON PT'S CONDITION. VSS, NO DISTRESS OR DISCOMFORT NOTED AT THIS TIME. SAFETY PRECAUTIONS IN PLACE.
--- NOTE | 2018-06-08 17:43 | NUR ---
CONTINUED TO MONITOR PT ON VENT WITH SETTINGS CHARTED BREATH SOUNDS PRESENT BILAT DIMINISHED ETT SECURE SXN PT WITH MIN AMT OFF WHITE SECS AMBU BAG AT BEDSIDE VENT PLUGGED INTO RED OUTLET
[2018-06-08 18:15] LABS: HEMATOCRIT 29.1 % (36-48); HEMOGLOBIN 8.9 g/dL (12.0-16.0); MEAN CORPUSCULAR HEMOGLOBIN 29 pg (27-31); MEAN CORPUSCULAR HGB CONC 31 g/dL (33-37); MEAN CORPUSCULAR VOLUME 94.4 fL (80-94); PLATELET COUNT (AUTO) 321 K/uL (140-450); RED BLOOD CELL COUNT(AUTO) 3.09 MIL/uL (4.20-5.40); WHITE BLOOD COUNT (AUTO) 16.6 K/uL (4.8-10.8)
--- NOTE | 2018-06-08 18:15 | NUR ---
PT SEEN AND EXAMINED BY DR. KOHLER. DR. KOHLER MADE AWARE OF PT'S DECREASED HR AND DECREASED URINE OUTPUT OF 350 ML DURING THE SHIFT. WILL FOLLOW UP ON ORDERS.
[2018-06-08 18:59] LABS: LYMPHOCYTES % (MANUAL) 8 % (20-46); MONOCYTES % (MANUAL) 4 % (5-12)
--- NOTE | 2018-06-08 19:28 | NUR ---
REPORT GIVEN TO BIOLOGICAL SCIENTIST NURSE FOR CONTINUITY OF CARE. NO SIGNS OF DISTRESS NOTED AT THIS TIME.
--- NOTE | 2018-06-08 19:30 | NUR ---
RECEIVED REPORT FROM MORNING RN, FOR CONTINUITY OF CARE. VS STABLE AT THIS TIME. PT RESPONSIVE TO PAIN. PERRL. FLACC 0. PT DOES NOT APPEAR TO BE EXPERIENCING ANY DISCOMFORT AT THIS TIME. S1+S2 HEARD. PULSES ARE PALPABLE. PT BETWEEN SB TO SR. LUNG SOUNDS CLEAR. ETT TO VENT WITH SETTINGS: FIO2 35%, AC 16, TV 500, AND PEEP 5. NO SIGNS OF RESPIRATORY DISTRESS NOTED. OGT IN PLACE. PLACEMENT CHECKED. NO RESIDUAL NOTED. RECEIVED PT ON GLUCERNA AT 50ML/HR. PT TOLERATING WELL AT THIS TIME. ABDOMEN ROUND, SOFT AND NONDISTENDED. BS ACTIVE IN ALL QUADRANTS. AQUINO CATHETER IN PLACE. DRAINING CLEAR AND YELLOW URINE. PT HAS MIDLINE ON ROSHAN. BLOOD RETURN NOTED. DRESSING CLEAN, DRY, AND INTACT. RECEIVED PT ON HEPARIN AT 140UNITS/HR. ALL SAFETY PRECAUTIONS ARE IN PLACE. WILL CONTINUE TO MONITOR PT.
[2018-06-08] MEDS ORDERED: VANCOMYCIN PER PHARMACY MC PRN (19:40)
[2018-06-08] MEDS ORDERED: VANCOMYCIN 1GM/DEXT 5% PREMIX 200 ML IV ONE (20:00)
[2018-06-08] MEDS: PIPER/TAZO 2.25GM/D5W PREMIX 50 ML IV SCH (20:07)
[2018-06-08] MEDS ORDERED: VANCOMYCIN 1,000 MG VIAL ONE (20:15)
[2018-06-08] MEDS ORDERED: PIPER/TAZO 2.25GM/D5W PREMIX 50 ML IV SCH (21:00)
--- NOTE | 2018-06-08 22:25 | NUR ---
DR. VALENTINO AT BEDSIDE TO SEE PT. PER DR. VALENTINO CONTINUE CURRENT ABX THERAPY.
--- NOTE | 2018-06-08 23:26 | NUR ---
AIRWAY SIZE 8 PLACED IN PT MOUTH DUE TO PT BITING ETUBE
[2018-06-09] VITALS (26 sets, daily range): BP systolic 93–173; BP diastolic 40–153
--- NOTE | 2018-06-09 01:00 | NUR ---
CALLED DR. RUFF TO CLARIFY HEPARIN ORDER. DISCONTINUE PER DR. Alannah BROTHERS'S ORDER
--- NOTE | 2018-06-09 01:40 | NUR ---
PT TURNED AND REPOSITIONED. NOTED TO HAVE 1 SMALL BM THAT IS BROWN AND PASTE-LIKE CONSISTENCY. PT TOLERATED BEING TURNED FAIRLY. KEPT LEGS ELEVATED. HOB AT 30 DEGREES. NO RESIDUAL NOTED AT THIS TIME. RESPIRATIONS ARE EVEN AND UNLABORED. ALL SAFETY PRECAUTIONS ARE IN PLACE. WILL CONTINUE TO MONITOR PT.
--- NOTE | 2018-06-09 04:10 | NUR ---
MORNING CARE PROVIDED TO PT. TOLERATED BEING TURNED. NO FURTHER SKIN BREAKDOWN NOTED. SWELLING AND WEEPING OF PAXTON STILL NOTED. PT AROUSABLE TO PAIN. FLACC 0. DOES NOT APPEAR TO BE EXPERIENCING ANY DISCOMFORT AT THIS TIME. PT TURNED AND REPOSITION. ORAL CARE PROVIDED.
[2018-06-09] MEDS: PIPER/TAZO 2.25GM/D5W PREMIX 50 ML IV SCH ×3 (05:41→20:23)
[2018-06-09] MEDS: LEVOTHYROXINE 0.05 MG TAB PO SCH (05:41)
--- NOTE | 2018-06-09 05:47 | NUR ---
0525 ABG DRAWN. SAMPLE WAS MIXED VENOUS. SHOWED RESULTS TO DR RUFF. NO CHANGES MADE ON BIPAP SETTINGS Addendum: 06/09/18 at 0550 by Winsome Chamorro RT CHARTED ON WRONG PATIENT
[2018-06-09 06:05] LABS: PLATELET COUNT (AUTO) 327 K/uL (140-450)
[2018-06-09 06:07] LABS: ANION GAP 14.6 (8-16); CARBON DIOXIDE 23.3 mmol/L (21-32); CHLORIDE 110 mmol/L (98-107); CREATININE 1.8 mg/dL (0.6-1.3); GLUCOSE 82 mg/dL (74-106); POTASSIUM 3.9 mmol/L (3.5-5.1); SODIUM SERUM 144 mmol/L (136-145); UREA NITROGEN, BLOOD 52 mg/dL (7-18)
[2018-06-09 06:11] LABS: PHOSPHORUS 4.2 mg/dL (2.5-4.9)
--- NOTE | 2018-06-09 06:20 | NUR ---
DR. PETTIT AT BEDSIDE. UPDATED HIM REGARDING PT'S CONDITION.
[2018-06-09] MEDS: BLOOD GLUCOSE MONITORING 1 DEV DEV FS SCH ×4 (06:26→20:24)
[2018-06-09 06:31] LABS: HEMATOCRIT 28.7 % (36-48); MEAN CORPUSCULAR HEMOGLOBIN 30 pg (27-31); MEAN CORPUSCULAR HGB CONC 31 g/dL (33-37); MEAN CORPUSCULAR VOLUME 94.8 fL (80-94); RED BLOOD CELL COUNT(AUTO) 3.03 MIL/uL (4.20-5.40); RED CELL DISTRIBUTION WIDTH 18.7 % (11.6-13.7); WHITE BLOOD COUNT (AUTO) 17.1 K/uL (4.8-10.8)
[2018-06-09 06:53] LABS: LYMPHOCYTES % (MANUAL) 6 % (20-46); MONOCYTES % (MANUAL) 5 % (5-12)
[2018-06-09 06:55] LABS: CORRECTED WHITE BLOOD COUNT 15.5 K/uL (4.5-11.0)
--- NOTE | 2018-06-09 07:22 | NUR ---
REPORT GIVEN TO MORNING RN FOR CONTINUITY OF CARE. PT STABLE AT THIS TIME.
--- NOTE | 2018-06-09 07:30 | NUR ---
RECEIVED PT ON BED WITH OGT GLUCERNA AT 50 ML/H,AQUINO ,ETT TO VENT,ATRIAL FIB ON THE MONITOR..RIGHT UPPER MIDLINE CATHETER INTACT ANT FLUSHABLE.FLACC=0.WILL MONITOR.
[2018-06-09] MEDS: ALBUTEROL SULFATE/IPRATROPIU 3 ML SOL IH SCH ×3 (07:32→19:03)
--- NOTE | 2018-06-09 07:39 | NUR ---
RECIVED PT ON VENT WITH SETTINGS CHARTED BREATH SOUNDS PRESENT BILAT CLEAR SXN PT WITH MIN AMT SECS OFF WHITE ETT SECURE AMBU BAG AT BEDSIDE VENT PLUGGED INTO RED OUTLET WILL CONTINUE TO MONITOR PT ON VENT
--- NOTE | 2018-06-09 08:45 | NUR ---
PLACED PT ON CPAP PEEP 5 PS 10 WILL MONITOR PT ON CPAP
[2018-06-09] MEDS ORDERED: FERROUS SULFATE 325 MG TABEC PO SCH (09:16)
[2018-06-09] MEDS: ASPIRIN 81 MG TAB.CHEW PO SCH (10:02)
[2018-06-09] MEDS: FAMOTIDINE 20 MG TAB PO SCH (10:04)
[2018-06-09] MEDS: AMIODARONE 200 MG TAB PO SCH ×3 (10:04→20:26)
[2018-06-09] MEDS: DIGOXIN 0.125 MG TAB PO SCH (10:05)
[2018-06-09] MEDS: CALCIUM ACETATE 667 MG TAB PO SCH (10:05)
[2018-06-09] MEDS: predniSONE 5 MG TAB PO SCH (10:05)
[2018-06-09] MEDS: ASCORBIC ACID 500 MG TAB PO SCH ×2 (10:06→20:23)
[2018-06-09] MEDS: LISINOPRIL 10 MG TAB PO SCH (10:06)
[2018-06-09] MEDS: ESCITALOPRAM 20 MG TAB PO SCH (10:07)
[2018-06-09] MEDS: FUROSEMIDE 40 MG/4 ML VIAL IVP SCH ×2 (10:09→17:57)
[2018-06-09] MEDS: METOPROLOL 25 MG TAB PO SCH ×2 (10:09→20:23)
--- NOTE | 2018-06-09 10:20 | NUR ---
DR. BROTHERS CAME IN TO SEE PT AT BEDSIDE, WILL FOLLOW UP WITH NEW ORDERS.
[2018-06-09] MEDS ORDERED: RIVAROXABAN 15 MG TAB PO SCH (10:45)
--- NOTE | 2018-06-09 13:00 | NUR ---
DR PETTIT MADE AWARE OF LEFT BUTTOCKS OPEN WOUND AND EXCORIATED AROUND IT.LEFT HEEL WITH NONBLANCHABLE REDNESS/ECCHYMOSIS .BILATERAL HEELS WITH PROTECTOR HEEL LIFT/BOOTS.
--- NOTE | 2018-06-09 13:45 | NUR ---
PT WITH LABORED BREATHING PLACED PT BACK ON AC RN AWARE
[2018-06-09] MEDS: MUPIROCIN CA NASAL 2% 1GM TUBE NS SCH (15:00)
[2018-06-09] MEDS: CHLORHEXADINE GLUC 2% CLOTH TP SCH (15:00)
--- NOTE | 2018-06-09 15:00 | NUR ---
removed pt from bipap and placed on 4lpm Oxymizer pt restless dr balderas bedside rn aware will continue to monitor pt
--- NOTE | 2018-06-09 15:27 | NUR ---
DR. MARSHALL CAME IN TO SEE PT AT BEDSIDE, UPDATED PT'S CONDITION, RT AT BEDSIDE, WILL FOLLOW UP WITH NEW ORDERS.
[2018-06-09] MEDS ORDERED: Z-GUARD PASTE TP SCH (15:35)
--- NOTE | 2018-06-09 17:53 | NUR ---
CONTINUED TO MONITOR PT ON VENT WITH SETTINGS CHARTED BREATH SOUNDS PRESENT BILAT ETT SECURE AMBU BAG AT BEDSIDE VENT PLUGGED INTO RED OUTLET
[2018-06-09] MEDS: FERROUS SULFATE 325 MG TABEC PO SCH (17:56)
--- NOTE | 2018-06-09 18:00 | NUR ---
SUMAN HANCOCK MADE AWARE 200 URINE OUTPUT TOTAL.
--- NOTE | 2018-06-09 19:25 | NUR ---
REPORT GIVEN TO YANDY IRENE
--- NOTE | 2018-06-09 19:30 | NUR ---
RECEIVED REPORT FROM DAY SHIFT RN NO ACUTE DISTRESS NOTED. WILL CONTINUE TO OBSERVE
--- NOTE | 2018-06-09 19:45 | NUR ---
PT ALERT TO NAME, UNABLE TO FOLLOW SIMPLE COMMANDS @ THIS TIME. L SIDED WEAKNESS NOTED; L HAND CONTRACTED. 7.0 ET TUBE TO VENT ON A/C MODE 35% FIO2, TV 400, R 16 PEEP 5, SCANT CREAMY WHITE SECRETIONS NOTED. CLEAR BREATH SOUNDS BILATERALLY. S1 S2 HEARD, TRACE GENERALIZED EDEMA, L UPPER ARM +2 EDEMA, WEEPING NOTED. ABD SOFT NON DISTENDED OGT IN PLACE AUSCULTATED FOR PLACEMENT, ACTIVE BOWEL SOUNDS NOTED. AQUINO CATH IN PLACE CLIFFORD URINE NOTED, DRAINING TO GRAVITY. EXCORIATION AND BLANCHABLE REDNESS NOTED TO BUTTOCKS AREA, SCATTERED BRUISING NOTED; L HEEL BRUISE/DISCOLORATION NOTED. IV TO R UPPER ARM MIDLINE DUAL LUMEN IN PLACE, PATENT, FLUSHED. NO ACUTE DISTRESS NOTED. FLACC 0 WILL CONTINUE TO OBSERVE.
--- NOTE | 2018-06-09 20:16 | NUR ---
VAP ORAL CARE DONE. PT TURNED AND REPOSITIONED.
[2018-06-10] VITALS (20 sets, daily range): BP systolic 84–122; BP diastolic 44–75
--- NOTE | 2018-06-10 02:00 | NUR ---
AM CARE DONE. PT TURNED AND REPOSITIONED.
--- NOTE | 2018-06-10 04:00 | NUR ---
VAP ORAL CARE DONE. WILL CONTINUE TO OBSERVE
[2018-06-10 05:52] LABS: HEMATOCRIT 26.9 % (36-48); HEMOGLOBIN 8.5 g/dL (12.0-16.0); MEAN CORPUSCULAR HEMOGLOBIN 30 pg (27-31); MEAN CORPUSCULAR HGB CONC 32 g/dL (33-37); PLATELET COUNT (AUTO) 277 K/uL (140-450); RED BLOOD CELL COUNT(AUTO) 2.86 MIL/uL (4.20-5.40); RED CELL DISTRIBUTION WIDTH 18.2 % (11.6-13.7); WHITE BLOOD COUNT (AUTO) 15.4 K/uL (4.8-10.8)
[2018-06-10] MEDS: BLOOD GLUCOSE MONITORING 1 DEV DEV FS SCH ×4 (05:55→21:03)
[2018-06-10] MEDS: PIPER/TAZO 2.25GM/D5W PREMIX 50 ML IV SCH (05:55)
[2018-06-10] MEDS: LEVOTHYROXINE 0.05 MG TAB PO SCH (05:55)
[2018-06-10 06:10] LABS: ANION GAP 11.5 (8-16); CARBON DIOXIDE 24.7 mmol/L (21-32); CHLORIDE 108 mmol/L (98-107); GLUCOSE 106 mg/dL (74-106); POTASSIUM 4.2 mmol/L (3.5-5.1); SODIUM SERUM 140 mmol/L (136-145)
[2018-06-10 06:15] LABS: CORRECTED WHITE BLOOD COUNT 14.3 K/uL (4.5-11.0); UREA NITROGEN, BLOOD 65 mg/dL (7-18)
[2018-06-10 06:16] LABS: EOSINOPHILS % (MANUAL) 1 % (0-4); LYMPHOCYTES % (MANUAL) 6 % (20-46); MONOCYTES % (MANUAL) 7 % (5-12)
[2018-06-10] MEDS: ALBUTEROL SULFATE/IPRATROPIU 3 ML SOL IH SCH ×3 (06:45→19:39)
--- NOTE | 2018-06-10 06:51 | NUR ---
reived pt on vent with settings as charted breath sounds present bilat clear sxn with min amt off white secs ett secure ambu bag at bedside vent plugged into red outlet will continue to monitor pt on vent
--- NOTE | 2018-06-10 07:28 | NUR ---
REPORT GIVEN TO DAY SHIFT FOR CONTINUITY OF CARE.
--- NOTE | 2018-06-10 07:29 | NUR ---
RECEIVED REPORT FROM OPTIMIZATION ENGINEER RN AT BEDSIDE, PT IS LETHARGIC, APHASIC, OPEN EYES WHEN SHAKING, UNABLE TO FOLLOW COMMANDS, VSS, FLACC 0. NO S/S OF DISTRESS, ETT TO VENT WITH SETTING FIO2 35, VT 400, R 16, PEEP 5, DIMINISHED LUNG SOUNDS BRIAN. A-FIB ON MOTOR GRADER OPERATOR, S1+S2 HEARD, PULSES ARE PALPABLE. OGT IN PLACE. PLACEMENT CHECKED, NO RESIDUAL NOTED, FEEDING WITH GLUCERNA AT 50ML/HR. ABDOMEN ROUND, SOFT AND NONDISTENDED, ACTIVE BOWEL SOUNDS IN ALL QUADRANTS. INCONTINENT, AQUINO CATHETER IN PLACE DRAINING CLEAR YELLOW URINE VIA GRAVITY, SKIN IS WARM AND DRY TO TOUCH, BUE NONPITTING EDEMA WITH WHIPPING NOTED, MIDLINE TO ROSHAN, BLC, PATENT AND KVO. HOB ELEVATED 30 DEGREES, SAFETY MEASURES IN PLACE, SCDS TO BLE, ORAL CARE PROVIDED, POSITION CHANGED FOR OFF LOAD PRESSURE, WILL CONTINUE TO MONITOR.
[2018-06-10] MEDS ORDERED: RIVAROXABAN 15 MG TAB PO SCH (09:00)
[2018-06-10] MEDS: METOPROLOL 25 MG TAB PO SCH ×2 (09:00→21:00)
[2018-06-10] MEDS: LISINOPRIL 10 MG TAB PO SCH (09:00)
--- NOTE | 2018-06-10 09:00 | NUR ---
SCHEDULED MEDICATION GIVEN VIA GT, PT TOLERATED WELL.
[2018-06-10] MEDS: FUROSEMIDE 40 MG/4 ML VIAL IVP SCH ×2 (09:07→16:45)
[2018-06-10] MEDS: ASPIRIN 81 MG TAB.CHEW PO SCH (09:07)
[2018-06-10] MEDS: CALCIUM ACETATE 667 MG TAB PO SCH (09:08)
[2018-06-10] MEDS: AMIODARONE 200 MG TAB PO SCH ×2 (09:08→21:00)
[2018-06-10] MEDS: predniSONE 5 MG TAB PO SCH (09:09)
[2018-06-10] MEDS: ESCITALOPRAM 20 MG TAB PO SCH (09:09)
[2018-06-10] MEDS: FAMOTIDINE 20 MG TAB PO SCH (09:09)
[2018-06-10] MEDS: FERROUS SULFATE 325 MG TABEC PO SCH ×2 (09:09→16:45)
[2018-06-10] MEDS: ASCORBIC ACID 500 MG TAB PO SCH ×2 (09:10→21:00)
[2018-06-10] MEDS: DIGOXIN 0.125 MG TAB PO SCH (09:11)
--- NOTE | 2018-06-10 09:30 | NUR ---
DR. MARSHALL CAME IN TO SEE PT AT BEDSIDE, UPDATED PT'S CONDITION, RT AT BEDSIDE, WILL FOLLOW UP WITH NEW ORDERS.
--- NOTE | 2018-06-10 09:36 | NUR ---
INCREASED VT TO [address] MARSHALL RN AWARE
[2018-06-10] MEDS ORDERED: VANCOMYCIN 1GM/DEXT 5% PREMIX 200 ML IV SCH (10:00)
--- NOTE | 2018-06-10 10:00 | NUR ---
NO CHANGE OF CONDITION AT THIS TIME, TUBE FEEDING CHANGED, VSS, FLACC 0, ON C-PAP, POSITION CHANGED FOR OFF LOAD PRESSURE.
--- NOTE | 2018-06-10 11:45 | NUR ---
PT IS EXTUBATED BY RT, DR. PETTIT AT BEDSIDE, PT IS ON O2 AT 5L VIA NC, O2 SAT 98% AT THIS TIME, SMALL AMOUNT OF MOUTH BLEEDING NOTED, ORAL CARE PROVIDED.
--- NOTE | 2018-06-10 13:00 | NUR ---
PT IS CONGESTED, LABORED BREATHING, O2 SAT 89%, WHEEZING LUNG SOUNDS NOTED, RT NOTIFIED. TUBE FEEDING RESIDUALS GREATER THAN 300ML, HOLD TUBE FEEDING AT THIS TIME, MD AWARE.
--- NOTE | 2018-06-10 13:45 | NUR ---
RT AND DR. PETTIT AT BEDSIDE, PT IS ON BIPAP, O2 SAT 99%
--- NOTE | 2018-06-10 13:55 | NUR ---
pt placed on bipap post extubation pt went into resp distress placed on bipap dr wall at bedside
--- NOTE | 2018-06-10 14:00 | NUR ---
PT IS ON BIPAP AT THIS TIME, VSS, FLACC 0, NO S/S OF DISTRESS, POSITION CHANGED FOR OFF LOAD PRESSURE.
--- NOTE | 2018-06-10 14:10 | NUR ---
dr balderas aware pt on bipap at this time
[2018-06-10] MEDS: CHLORHEXADINE GLUC 2% CLOTH TP SCH (15:10)
[2018-06-10] MEDS: MUPIROCIN CA NASAL 2% 1GM TUBE NS SCH (15:47)
[2018-06-10] MEDS ORDERED: MUPIROCIN CA NASAL 2% 1GM TUBE NS SCH (16:00)
[2018-06-10] MEDS ORDERED: CHLORHEXADINE GLUC 2% CLOTH TP SCH (16:00)
--- NOTE | 2018-06-10 16:00 | NUR ---
PT IS ON BIPAP, LABORED BREATHING NOTED, O2 SAT TO 88%, RT AWARE, PM CARE AND F/C CARE PROVIDED, POSITION CHANGED FOR OFF LOAD PRESSURE.
--- NOTE | 2018-06-10 16:27 | NUR ---
PAGED DR. MARSHALL 2ND TIMES, WAITING FOR CALL BACK.
[2018-06-10] MEDS ORDERED: ETOMIDATE 20 MG/10 ML VIAL IVP ONE (17:15)
--- NOTE | 2018-06-10 17:30 | NUR ---
PT INTUBATED BY DR OSEGUERA PT IN RESP DISTRESS
--- NOTE | 2018-06-10 17:30 | NUR ---
PT'S IS AGONAL BREATHING, BP 81/33, O2 SAT 88% ON BIPAP, EMERGENCY ETT NEEDED PER DR. PETTIT, CONSENT OBTAINED BY VANDANA CRUZ AT 1715, DR. OSEGUERA AND DR. PETTIT REINTUBATED PT AT BEDSIDE, RT AND DR. PETTIT PRESENT.
--- NOTE | 2018-06-10 18:00 | NUR ---
PT IS RESTING IN BED, NO S/S OF DISTRESS, VSS, FLACC 0, REDDISH STOOL NOTED, DR. DANIEL AWARE, POSITION CHANGED FOR OFF LOAD PRESSURE.
[2018-06-10] MEDS ORDERED: methylPREDNISolone SS 125 MG/2 ML VIAL IVP SCH (18:50)
--- NOTE | 2018-06-10 19:15 | NUR ---
REPORT GIVEN TO RESEARCH HYDRAULIC ENGINEER NURSE FOR CONTINUE OF CARE, PT IS IN STABLE CONDITION AT THIS TIME.
--- NOTE | 2018-06-10 19:30 | NUR ---
RECEIVED REPORT FROM MORNING RN FOR CONTINUITY OF CARE. VS STABLE AT THIS TIME. AFEBRILE. FLACC 0. PT OPENS EYES TO SHAKING. UNABLE TO MAKE NEEDS KNOWN. PT DOES NOT APPEAR TO BE EXPERIENCING ANY DISCOMFORT AT THIS TIME. ETT TO VENT WITH SETTINGS: AC14, FIO2 35%, TV 450, AND PEEP 5. RESPIRATIONS ARE EVEN AND UNLABORED. MOUTH SUCTIONED AND SALIVA MIXED WITH BLOOD ASPIRATED. S1+S2 HEARD. AFIB ON MONITOR. PULSES ARE PALPABLE. ABDOMEN ROUND, SOFT AND NONDISTENDED. BS ACTIVE IN AL QUADRANTS. AQUINO CATHETER IN PLACE. CLEAR AND YELLOW URINE NOTED. PT HAS RIGHT UPPER ARM MIDLINE IN PLACE. LINE IS PATENT, INTACT AND ASYMPTOMATIC. ALL SAFETY PRECAUTIONS ARE IN PLACE. WILL CONTINUE TO MONITOR PT.
--- NOTE | 2018-06-10 20:30 | NUR ---
PT HAD A LARGE BM THAT IS SOFT AND BROWN IN COLOR. PT WAS CLEANED AND REPOSITIONED. TOLERATED BEING TURNED AND REPOSITIONED WELL. PT WAS AWAKE WHEN BEING CLEANED. WILL CONTINUE TO MONITOR.
--- NOTE | 2018-06-10 20:50 | NUR ---
OGT IN PLACE AND SECURED. ASPIRATED STOMACH CONTENTS. RESIDUAL WAS 340ML AT THIS TIME. RETURNED ALL THAT WAS ASPIRATED.
--- NOTE | 2018-06-10 21:00 | NUR ---
MEDS NOT GIVEN. WAITING FOR OGT IN PLACE TO BE VERIFIED WITH CHEST X-RAY. BP AND HR MEDS NOT GIVEN D/T DECREASE BP AT THIS TIME.
--- NOTE | 2018-06-10 22:17 | NUR ---
ABG DONE, CALLED DR KOHLER, REPORT THE ABG RESULT, AND NO VENT CHANGED DONE
[2018-06-10 22:26] LABS: HEMOGLOBIN 8.7 g/dL (12.0-16.0); MEAN CORPUSCULAR HEMOGLOBIN 29 pg (27-31); MEAN CORPUSCULAR HGB CONC 30 g/dL (33-37); MEAN CORPUSCULAR VOLUME 97.2 fL (80-94); PLATELET COUNT (AUTO) 279 K/uL (140-450); RED CELL DISTRIBUTION WIDTH 18.6 % (11.6-13.7)
[2018-06-10] MEDS ORDERED: NACL 0.9% 500 ML IV ONE ×2 (22:35→23:20)
--- NOTE | 2018-06-10 22:35 | NUR ---
CALLED DR. HANCOCK TO NOTIFY HIM THAT PT'S SBP HAS BEEN LOW 80S TO HIGH 70S. RECEIVED NEW ORDER.
--- NOTE | 2018-06-10 22:52 | NUR ---
FOLLOWED-UP WITH AFTER HOURS PHARMACY REGARDING THE VERIFICATION OF IV BOLUS ORDERED.
--- NOTE | 2018-06-10 22:55 | NUR ---
CALLED RADIOLOGY DEPARTMENT, SPOKE WITH ANKUSH, FOLLOWED- UP REGARDING CHEST XRAY ORDERED FOR NGT PLACEMENT VERIFICATION
[2018-06-10 23:27] LABS: WHITE BLOOD COUNT (AUTO) 18.1 K/uL (4.8-10.8)
[2018-06-10 23:28] LABS: HEMATOCRIT 26.1 % (36-48)
[2018-06-10 23:29] LABS: CORRECTED WHITE BLOOD COUNT 15.2 K/uL (4.5-11.0); EOSINOPHILS % (MANUAL) 1 % (0-4); LYMPHOCYTES % (MANUAL) 9 % (20-46); MONOCYTES % (MANUAL) 1 % (5-12)
[2018-06-11] VITALS: BP 77/41
[2018-06-11 01:25] VITALS: BP 103/88
--- NOTE | 2018-06-11 01:40 | NUR ---
RECEIVED A CALL FROM DR. HANCOCK AND UPDATED HIM REGARDING PT'S CONDITION. WILL CONTINUE TO MONITOR PT'S BP AT THIS TIME.
[2018-06-11 02:00] VITALS: BP 100/45
--- NOTE | 2018-06-11 02:13 | NUR ---
CALLED DR. HANCOCK TO FOLLOW-UP WITH A MEDICATION ORDERED BY DR. PETTIT AT 1850; OKAY TO GIVE MEDICATION NOW.
--- NOTE | 2018-06-11 03:23 | NUR ---
VS STABLE AT THIS TIME. SBP AT 100. NO CHANGE IN PATIENT'S CONDITION. RESPIRATIONS ARE EVEN AND UNLABORED. PT DOES NOT APPEAR TO BE IN ANY DISTRESS AT THIS TIME. AFIB ON MONITOR. OXYGEN SATURATION AT 95%. HOB AT 30 DEGREES. BED AT LOWEST POSSIBLE POSITION. ALL SAFETY PRECAUTIONS ARE IN PLACE. WILL CONTINUE TO MONITOR PT.
[2018-06-11 03:40] VITALS: BP 98/41
[2018-06-11 04:00] VITALS: BP 98/40
--- NOTE | 2018-06-11 04:50 | NUR ---
MORNING CARE PROVIDED TO PT. DR. HANCOCK AT BEDSIDE TO SEE PT AT THIS TIME.
[2018-06-11 05:38] VITALS: BP 114/53
--- NOTE | 2018-06-11 06:11 | NUR ---
INTERSTATE PLANNER COMING TO PT'S ROOM TO RECHECK BLOOD PRESSURE DUE TO LOW READING. NOTED PT TO HAVE HR AT 38. ATTEMPTED TO WAKE PT AND FEEL FOR PULSE
--- NOTE | 2018-06-11 06:12 | NUR ---
CODE BLUE CALLED. NO PULSE FELT. SEE CODE SHEET.
--- NOTE | 2018-06-11 06:21 | NUR ---
PULSE WAS PALPATED AND RHYTHM WAS SHOWN ON MONITOR.
--- NOTE | 2018-06-11 06:25 | NUR ---
BERENICE SNIDER CALLED AGAIN. NO PULSE FELT AND CONFIRMED BY DOPPLER. CHEST COMPRESSION STARTED
--- NOTE | 2018-06-11 06:29 | NUR ---
PULSE WAS FELT AND CONFIRMED BY THE DOPPLER
--- NOTE | 2018-06-11 06:31 | NUR ---
NO PULSE WAS FELT AGAIN, NOTHING COULD BE HEARD FROM THE DOPPLER. SEE CODE SHEET.
[2018-06-11] MEDS ORDERED: EPINEPHrine 1:1000 - 1 MG/ML AMP ONE (06:43)
--- NOTE | 2018-06-11 06:53 | NUR ---
NO PULSE WAS FELT AND NOTHING CAN BE HEARD FROM THE DOPPLER. TIME OF CALLED AT 1661
--- NOTE | 2018-06-11 07:13 | NUR ---
PHONE CALL MADE TO [facility]; SPOKE WITH [facility]LA[facility]; REFERRAL # [phone]
--- NOTE | 2018-06-11 07:20 | NUR ---
PHONE CALL TO SDC TEACHER'S OFFICE; SPOKE WITH SHELLI.QUESTIONS ANSWERED.SHE SAID THE SDC TEACHER WILL CALL BACK.AWAITING CALL BACK FROM SD[employer] TEACHER.ENDORSED TO AM SHIFT CHARGE ELIZABETH
--- NOTE | 2018-06-11 08:00 | NUR ---
BODY RELEASED BY FROYLAN FISHMAN. RELEASE NUMBER: [id number].
--- NOTE | 2018-06-11 13:25 | NUR ---
PATIENT TAKEN BY [facility]. NO PERSONAL BELONGINGS.
== END 2018-06-11 06:53 | disposition expired | DRG 870 ==
LOC: MED 18:30 → MTU 22:43 → MIC 06-06 09:59
PROVIDERS: ADMIT General Practice; ATTEND General Practice
PROC: 05H733Z Insertion of Infusion Device into Right Axillary Vein, Percutaneous Approach (ICD-10-PCS; 2018-06-05)
PROC: 5A1955Z Respiratory Ventilation, Greater than 96 Consecutive Hours (ICD-10-PCS; principal; 2018-06-06)
PROC: 0BH17EZ Insertion of Endotracheal Airway into Trachea, Via Natural or Artificial Opening (ICD-10-PCS; 2018-06-06)
PROC: 30233N1 Transfusion of Nonautologous Red Blood Cells into Peripheral Vein, Percutaneous Approach (ICD-10-PCS; 2018-06-08)
PROC: 5A12012 Performance of Cardiac Output, Single, Manual (ICD-10-PCS; 2018-06-11)
DX: A41.9 Sepsis, unspecified organism (principal); I50.43 Acute on chronic combined systolic (congestive) and diastolic (congestive) heart failure; N17.0 Acute kidney failure with tubular necrosis; E43 Unspecified severe protein-calorie malnutrition; G93.41 Metabolic encephalopathy; J96.01 Acute respiratory failure with hypoxia; J69.0 Pneumonitis due to inhalation of food and vomit; I21.4 Non-ST elevation (NSTEMI) myocardial infarction; N39.0 Urinary tract infection, site not specified; I24.9 Acute ischemic heart disease, unspecified; E03.9 Hypothyroidism, unspecified; E11.9 Type 2 diabetes mellitus without complications; I11.0 Hypertensive heart disease with heart failure; I25.10 Atherosclerotic heart disease of native coronary artery without angina pectoris; K76.0 Fatty (change of) liver, not elsewhere classified; E86.0 Dehydration; G30.9 Alzheimer's disease, unspecified; F02.80 Dementia in other diseases classified elsewhere, unspecified severity, without behavioral disturbance, psychotic disturbance, mood disturbance, and anxiety; D50.9 Iron deficiency anemia, unspecified; E83.39 Other disorders of phosphorus metabolism; K76.89 Other specified diseases of liver; I46.9 Cardiac arrest, cause unspecified; I48.2 Chronic atrial fibrillation; Z86.73 Personal history of transient ischemic attack (TIA), and cerebral infarction without residual deficits; Z22.322 Carrier or suspected carrier of Methicillin resistant Staphylococcus aureus; Z79.01 Long term (current) use of anticoagulants; Z79.84 Long term (current) use of oral hypoglycemic drugs; Z79.899 Other long term (current) drug therapy; Z68.20 Body mass index [BMI] 20.0-20.9, adult
CPT/HCPCS: 36415; 36600; 70450; 71045; 76604; 76705; 80048; 80053; 80202; 81001; 82150; 82272; 82607; 82728; 82746; 82803; 82948; 83036; 83540; 83605; 83690; 83735; 83880; 84100; 84436; 84443; 84484; 85025; 85045; 85610; 85730; 86886; 86900; 86901; 86920; 87040; 87070; 87081; 87086; 87186; 87205; 87804; 89220; 92610; 93005; 93930; 93970; 94002; 94003; 94640; 96374; 99285; C1751; J0171; J0696; J1644; J1650; J1815; J1940; J2250; J2270; J2543; J2916; J2930; J3370; J3490; J7030; J7060; J7512; J7620; P9016; Q0092